=== PATIENT | female | born 1945 | race Caucasian/White ===

== ENCOUNTER 2025-02-11 09:43 | Outpatient (REF) | payer MEDICARE, SELFPAY ==
--- NOTE | ~2025-02-11 | MM_ITS ---
EXAMINATION: DXA BONE DENSITY AXIAL HISTORY: Z78.0 MENOPAUSAL STATE TECHNIQUE: Digital Signal Dual energy absorptiometry (DEXA) of the lumbar spine, total left hip, and femoral neck was performed. COMPARISON: Comparison is made with the prior examination dated 12/08/2016. FINDINGS: The bone mineral density of the lumbar spine is 0.847, corresponding to a T-score of -2.9, and a Z-score of -1.7. This is indicative of osteoporosis. This represents a BMD change of -11.1% compared to the prior exam. This is statistically significant. The bone mineral density of the left total hip is 0.843, corresponding to a T-score of -1.3, and a Z-score of 0.3. This is indicative of osteopenia. This represents a BMD change of -6.0% compared to the prior exam. This is statistically significant. The bone mineral density of the left femoral neck is 0.725, corresponding to a T-score of -2.3, and a Z-score of -0.4. This is indicative of osteopenia. This represents a BMD change of -11.2% compared to the prior exam. FRACTURE RISK: The FRAX index suggests a ten year probability of major osteoporotic fracture of 24.8%, and of hip fracture 9.2%. MM/XR DEXA axial skeleton IMPRESSION: Based on bone mineral density, and according to World Health Organization (WHO) criteria, the diagnosis is consistent with osteoporosis. All bone density values are in grams per centimeter squared (g/cm2). Statistically, 68% of repeat scans fall within 1 SD (+/- 0.010 g/cm2 for AP spine L1-L4) and 1 SD (+/- 0.012 g/cm2 for femur total) FRAX is a trademark of the [employer] [employer], a World Health Organization (WHO) Collaborating Center. Electronically signed by: Santana Barreto MD 02/12/2025 08:53 AM EDT
--- OUTSIDE RECORDS SUMMARY | 2025-02-11 10:20 | XMS_ITS | Data Portability ---
Author Organization [facility], [facility]LY [facility] Address [address] [place] [address] Care Team Providers Care Poultry Sexer Name Role Phone LITA MIR Primary Care Provider [phone] YOLIS PELAEZ Em Physician ANIBAL HUMPHREYS Barrel Polisher Inside KAYLYNN MUÑOZ Acid Plant Helper Assessment Encounter Date Assessment Date Assessment LastModified by Organization Details LastModified Time 10/14/2024 10/14/2024 Plan: 1-2 x/week tapering as lashae to 1 every 2-4 weeks for 8 weeks from 09/02/24 A: Appropriate with HEP progressions. Likely needs to attend closely to sitting and sleeping position to make satisfactory progress on goals. Skilled PT is reasonable and indicated to address exam findings and maximize safe pain-free level of function. Next visit: review sleeping position, step-ups/step-do wn positioning, review repeated spinal flexion motions, OMT reassessment Goals: STG/LTG Time to Achieve Goal Progress per IE Comment STG 4 weeks No increased pain with HEP new STG 4 weeks Radiating pain in L LE <2/10 on average new LTG 8 weeks Patient-Specific Functional Scale improved from 6/10 to 0/10 for walking up stairs new LTG 8 weeks Patient-Specific Functional Scale improved from 6/10 to <2/10 for sleeping new LTG 8 weeks Patient-Specific Functional Scale improved from 6/10 to <2/10 for walking new LTG 8 weeks Resolved compensated trendelenburg gait over >150 ft in clinic. new LTG 8 weeks MMT at least 4+/5 throughout B hip abd/ext to support pain control with ADLs new LTG 8 weeks Radiating pain in L LE resolved new LTG 8 weeks Independent in comprehensive HEP. new Treatments may include (as appropriate/as indicated): Therapeutic exercise(14309)/ Neuromuscular Reeducation (90295)/Manual Therapy (47751)/Therapeu tic Activities (51460)/Self-car e management(64259 )/Attended Electrical Stimulation (64696)/PRN modalities/dry needling/Gait Training (53898)/canalith repositioning(95 992) Not available 10/14/2024 12:02:33 11/05/2024 11/05/2024 1 every 2-4 weeks for an additional 8 weeks from 11/05/24 A: Pt making excellent progress on goals. She would benefit from skilled HEP review and modification to ensure full relief of pain and compensated trendelenburg gait. Skilled PT is reasonable and indicated to address exam findings and maximize safe pain-free level of function. Next visit: OMT reassessment PRN. Review HEP. Goals: STG/LTG Time to Achieve Goal Progress per IE Comment STG 4 weeks No increased pain with HEP goal met STG 4 weeks Radiating pain in L LE <2/10 on average goal met LTG 8 weeks Patient-Specific Functional Scale improved from 6/10 to 0/10 for walking up stairs 66% 2/10 as of 11/05/24 - no pain, but still slower/muscularl y tiring LTG 8 weeks Patient-Specific Functional Scale improved from 6/10 to <2/10 for sleeping goal met 0-1/10 as of 11/05/24 LTG 8 weeks Patient-Specific Functional Scale improved from 6/10 to <2/10 for walking goal met 1/10 as of 11/05/24 - I still seem to waddle. No fatigue or pain. LTG 8 weeks Resolved compensated trendelenburg gait over >150 ft in clinic. not met LTG 8 weeks MMT at least 4+/5 throughout B hip abd/ext to support pain control with ADLs 50% LTG 8 weeks Radiating pain in L LE resolved goal met LTG 8 weeks Independent in comprehensive HEP. new still finalizing HEP as of 11/05/24 Treatments may include (as appropriate/as indicated): Therapeutic exercise(45623)/ Neuromuscular Reeducation (20458)/Manual Therapy (30990)/Therapeu tic Activities (60484)/Self-car e management(99691 )/Attended Electrical Stimulation (54233)/PRN modalities/dry needling/Gait Training (61645)/canalith repositioning(95 992) [email or web address] Not available 11/05/2024 12:02:17 11/22/2024 11/22/2024 1 every 2-4 weeks for an additional 8 weeks from 11/05/24 A: Pt continues to have functional hip abductor weakness. Consequent trendelenburg in single legged activities contributing to residual sx. Skilled PT is reasonable and indicated to address exam findings and maximize safe pain-free level of function. Next visit in 2-4 weeks: OMT reassessment PRN. Review HEP and confirm progressing resistance exercise. Review goals. Pt to return in 2 weeks if not making improvement. Goals: STG/LTG Time to Achieve Goal Progress per IE Comment STG 4 weeks No increased pain with HEP goal met STG 4 weeks Radiating pain in L LE <2/10 on average goal met LTG 8 weeks Patient-Specific Functional Scale improved from 6/10 to 0/10 for walking up stairs 66% 2/10 as of 11/05/24 - no pain, but still slower/muscularl y tiring LTG 8 weeks Patient-Specific Functional Scale improved from 6/10 to <2/10 for sleeping goal met 0-1/10 as of 11/05/24 LTG 8 weeks Patient-Specific Functional Scale improved from 6/10 to <2/10 for walking goal met 1/10 as of 11/05/24 - I still seem to waddle. No fatigue or pain. LTG 8 weeks Resolved compensated trendelenburg gait over >150 ft in clinic. not met LTG 8 weeks MMT at least 4+/5 throughout B hip abd/ext to support pain control with ADLs 50% LTG 8 weeks Radiating pain in L LE resolved goal met LTG 8 weeks Independent in comprehensive HEP. new still finalizing HEP as of 11/05/24 Treatments may include (as appropriate/as indicated): Therapeutic exercise(86026)/ Neuromuscular Reeducation (53722)/Manual Therapy (97417)/Therapeu tic Activities (22364)/Self-car e management(90764 )/Attended Electrical Stimulation (68163)/PRN modalities/dry needling/Gait Training (49527)/canalith repositioning(95 992) [email or web address] Not available 11/22/2024 14:30:33 01/14/2025 01/14/2025 We completed your Medicare Wellness exam today. This was an opportunity to assess your overall well being including your ability to care for yourself, your mobility, memory, mental health, as well as your safety. With advancing age, it is important to assign someone in your life as your Health Care Proxy (HCP). This person should know what is important to you and what your wishes are for medical procedures if you cannot communicate your wishes yourself (severe illness, unconsciousness) . We discussed having a completed Health Care Proxy form today. In addition, today we started a conversation about your End of Life wishes. These conversations will continue over the years. Please consider reading the book, Being Mortal by Tobias Walker to help frame future conversations. We discussed the purpose of a MOLST form (Medical Orders for Life Sustaining Treatment) and completed this form if appropriate per your wishes. Vision and Hearing are senses that are critically important as we age. When impaired, they can contribute to memory loss, falls, and make it harder to drive, talk to family and friends, and engage in the world. Please get your vision checked yearly and your hearing checked when you start to notice hearing loss. We discussed approaches to lowering your risk of heart disease and stroke . Your blood pressure is at goal. Your cholesterol is at goal. We discussed cancer screening you may need as well as vaccines to prevent infections. Colon Cancer : Your risk of colon cancer is average. Due for colorectal screenin. If you are not planning to have a colonoscopy please screen with stool cards yearly. Breast Cancer : Breast Cancer Screening (mammography). Next mammogram due: 2025. Cervical Cancer Screening (pap test). Next pap due: not needed. Influenza Vaccine : Flu shot yearly. Tetanus Vaccine : Every 10 years. Due: 2023. The following vaccines are available from your pharmacy: Pneumonia Vaccine : PCV20: once after age 65. Shingles Vaccine : 2 shots after age 50. Covid Vaccine : Make sure you have received the most up to date covid vaccine. Your personal health goal for the year is: Not available 01/14/2025 13:26:40 Plan of Treatment Reminders Order Date Submit Date Provider Last Modified By Organization Details Last Modified Time Details Appointments LAB Follow-Up 2024 08:50A M [facility] Lab Not available Not available Not available Follow Up, 2024 09:50A M Yolis Pelaez MD Not available Not available Not available LAB Follow-Up 2024 08:30A M [facility] Lab Not available Not available Not available Medical Managemen t 30 2024 10:30A M SHALOM PITTSINGE R, VENETIAN BLIND CLEANER AND REPAIRER Not available Not available Not available Lab magnesium , blood [address] [facility], [address] [place] [address], [id number], 01/14/2025 10:51:18 vitamin D, 25-hydrox y, total, serum [address] [facility], [address] [place] [address], [address], 01/14/2025 10:51:18 PTH (parathyr oid hormone), intact, serum or plasma [address] [facility], [address] [place] [address], [address], 01/14/2025 10:51:18 phosphoru s, serum or plasma [address] [facility], [address] [place] [address], [address], 01/14/2025 10:51:18 influenza virus A + B + SARS-CoV- 2 (COVID19) Ag panel, rapid IA, upper respirato ry specimen 2024 [address] [facility], [address] [place] [address], [address], 12/25/2024 09:07:[address] referral - trouble hearing 2024 025 [facility], [address] [place] [address], [address], 01/16/2025 16:27:21 Procedures None recorded. Surgeries None recorded. Imaging bone density - Last imaging in chart was 12/08/2016 at [place] 2024 025 [facility], [address] [place] [address] [place], [address], 01/15/2025 12:04:24 Medication Orders clotrimaz ole 1 % topical cream 2024 025 [facility], [facility], JESÚS Pérez, [address], 01/14/2025 10:55:40 Patient TargetsNo targets recorded. 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 Referral for Wilmer ateral hearing loss trouble hearing Referring Physician: Lita Mir, Family Medicine, Encounter Date: 01/14/2025 Results Created Date Observation Date Name Description Value Unit Range Abnormal Flag Note LastModifiedBy Organization Detail LastModifiedTime 12/25/1912/24/2024 POC FLU/S ARS flu A POC NEGATI VE Not Available [facility] [address] [place], [address], 12/25/2024 09:07:14 12/25/1912/24/2024 POC FLU/S ARS flu B POC NEGATI VE Not Available [facility] [address] [place], [address], 12/25/2024 09:07:14 12/25/192025 POC FLU/S ARS sars POC NEGATI VE Not Available [facility] [address] [place], [address], 12/25/2024 09:07:14 01/08/20 25 01/07/2025 BASIC METAB OLIC PANEL glucose 82 mg/dL 70-100 Not Available [facility] [address] [place], [address], 01/07/2025 11:42:27 01/08/20 25 01/07/2025 BASIC METAB OLIC PANEL BUN 14 mg/dL 7-18 Not Available [address], [address], 01/07/2025 11:42:27 01/08/20 25 01/07/2025 BASIC METAB OLIC PANEL creatinine 0.8 mg/dL 0.8-1. 3 Not Available [facility] [address] [place], [address], 01/07/2025 11:42:27 01/08/20 25 01/07/2025 BASIC METAB OLIC PANEL B/C 17.5 ratio Not Available [address], [address], 01/07/2025 11:42:27 01/08/20 25 01/07/2025 BASIC METAB OLIC PANEL GFR >=60ML /MIN mL/mi n normal >=60m L/min - Vandana l or midly reduc ed <60mL /min- Decre ased kidne y funct ion <15mL /min - Kidne y failu re [facility] calcu lates estim ated Glome rular Filtr ation Rate (eGFR ) using the Chron ic Kidne y Disea se Epide miolo gy Colla borat ion (CKD- EPI) Equat ion (Pal alcala et. al 2020) as recom nithin d by the Natio nal Kidne y Found ation . eGFR is based on age, serum creat inine , and sex. CKD-E PI does not calcu late eGFR by race, does not apply to child singh (age <18 years ), and shoul d not be used in pregn brittany. Not Available [address], [address], 01/07/2025 11:42:27 01/08/20 25 01/07/2025 BASIC METAB OLIC PANEL sodium 138 mmol/ L 136-14 5 Not Available [address], [address], 01/07/2025 11:42:27 01/08/20 25 01/07/2025 BASIC METAB OLIC PANEL potassium 4.5 mmol/ L 3.5-5. 1 Not Available [address], [address], 01/07/2025 11:42:27 01/08/20 25 01/07/2025 BASIC METAB OLIC PANEL chloride 98 mmol/ L 96-107 Not Available [address], [address], 01/07/2025 11:42:27 01/08/20 25 01/07/2025 BASIC METAB OLIC PANEL anion gap 9.1 5.0-15 .0 Not Available [address], [address], 01/07/2025 11:42:27 01/08/20 25 01/07/2025 BASIC METAB OLIC PANEL CO2 31 mmol/ L 21-32 Not Available [address], [address], 01/07/2025 11:42:27 01/08/20 25 01/07/2025 BASIC METAB OLIC PANEL calcium 9.2 mg/dL 8.5-10 .3 Not Available [address], [address], 01/07/2025 11:42:27 01/08/20 25 01/07/2025 LIPID PANEL cholesterol 193 mg/dL <200 mg/dl Yahaira able 200-2 39 mg/dl Borde rline High >240 mg/dl High Not Available [address], [address], 01/07/2025 11:42:28 01/08/2001/07/2025 LIPID PANEL triglyceride s 103 mg/dL <150 mg/dL Vandana l 150-1 99 mg/dL Borde rline High 200-4 99 mg/dL High >500 mg/dL Very High Not Available [address], [address], 01/07/2025 11:42:28 01/08/20 25 01/07/2025 LIPID PANEL direct HDL 78 mg/dL <40 mg/dl - Major Risk for CHD >60 mg/dl - Negat cal Risk for CHD Not Available [address], [address], 01/07/2025 11:42:28 01/08/20 25 01/07/2025 LDL - CALCU LATED LDL - calculated 94 RISK CATEG ORY LDL GOAL _ CHD or CHD Risk Equiv alent s <100 mg/dl (10-y ear risk >20%) 2+ Risk Facto rs <130 mg/dl (10-y ear risk <= 20%) 0-1 Risk Facto r? <160 mg/dl ? Almos t all peopl e with 0-1 risk facto r have a 10 year risk <10%, thus 10 year risk asses ment in peopl e with 0-1 risk facto r is not lizz sheikh. Not Available [address], [address], 01/07/2025 11:42:28 01/08/2001/07/2025 TSH TSH 0.14 uIU/m L 0.50-6 .00 low The Ameri can Colle ge of Endoc rinol ogy and Ameri can Thyro id Assoc iatio n recom mend goal TSH value s betwe en 0.4-4 .0 mIU/m L. Not Available [address], [address], 01/07/2025 14:13:45 02/04/2002/03/2025 MAMMO , scree surekha, tomos ynthe sis, bilat eral No observ ation record ed. [email or web address] [facility] [address] , [place], [address], 02/04/2025 08:11:48 Result Notes None recorded. 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 Free t4 has suggested thyroid hormone is well dosed in the past. I would not recommend following tsh. 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 Procedures Surgical History Date Name Laterality Status Provider Name and Address Organization Details Recorded Time 01/15/20 Medicare Wellness Visit completed CHRISTOPHER Elizabeth [facility] 01/10/2025 16:33:10 11/23/19 36510: Therapeutic Exercise completed ARTURO CHARLES, PT [address] [place], [address], [facility] 11/22/2024 14:27:49 11/23/19 09293: Neuromuscular Re-Education completed ARTURO CHARLES PT [address] [place], [address], [facility] 11/22/2024 14:27:00 11/23/19 11481: Therapeutic Activities - Direct 1:1 completed ARTURO CHARLES, PT [address] [place], [address], [facility] 11/22/2024 14:26:51 11/23/19 25 Treatment and Advice completed ARTURO CHARLES, PT [address] [place], [address], [facility] 11/22/2024 14:07:43 11/05/19 25 06559: Therapeutic Exercise completed ARTURO CHARLES, PT [address] [place], [address], [facility] 11/05/2024 12:01:22 11/05/19 25 Treatment and Advice completed ARTURO CHARLES, PT [address] [place], [address], [facility] 11/05/2024 10:59:11 10/14/19 05842: Therapeutic Exercise completed ARTURO CHARLES, PT [address] [place], [address], [facility] 10/14/2024 12:00:38 10/14/19 25 28914: Therapeutic Activities - Direct 1:1 completed ARTURO CHARLES, PT [address] [place], [address], [facility] 10/14/2024 12:00:43 10/14/19 25 Treatment and Advice completed ARTURO CHARLES, PT [address] [facility] [place], [address], [facility] 10/14/2024 10:11:54 09/30/19 25 79493: Therapeutic Exercise completed ARTURO CHARLES, PT [address] [place], [address], [facility] 09/30/2024 12:09:06 09/30/19 25 56389: Therapeutic Activities - Direct 1:1 completed ARTURO CHARLES, PT [address] [place], [address], [facility] 09/30/2024 12:07:38 09/30/19 25 Treatment and Advice completed ARTURO CHARLES, PT [address] [place], [address], [facility] 09/30/2024 11:34:38 09/23/19 25 98489: Therapeutic Exercise completed ARTURO CHARLES, PT [address] [place], [address], [facility] 09/23/2024 12:15:14 09/23/19 25 07723: Therapeutic Activities - Direct 1:1 completed ARTURO CHARLES, PT [address] [place], [address], [facility] 09/23/2024 12:16:48 09/23/19 25 Treatment and Advice completed ARTURO CHARLES, PT [address] [place], [address], [facility] 09/23/2024 12:01:23 09/16/20 24 24045: Therapeutic Exercise completed ARTURO CHARLES, PT [address] [place], [address], [facility] 09/16/2024 10:54:08 09/16/20 24 05087: Therapeutic Activities - Direct 1:1 completed ARTURO CHARLES, PT [address] [place], [address], [facility] 09/16/2024 10:33:31 09/16/20 24 Treatment and Advice completed ARTURO CHARLES, PT [address] [place], [address], [facility] 09/16/2024 09:30:41 09/02/20 24 Physical Activity Counselling completed ARTURO CHARLES, PT [address] [facility] [place], [address], [facility] 09/02/2024 12:08:28 09/02/20 24 [address]: PT January, Moderate Complexity completed ARTURO CHARLES, PT [address] [facility] [place], [address], [facility] 09/02/2024 12:08:23 09/02/20 24 Treatment and Advice completed ARTURO CHARLES, PT [address] [facility] [place], [address], [facility] 09/02/2024 14:03:50 08/17/20 17 71071: Therapeutic Exercise completed Marlen Fleming[address], [address], [facility] 05/04/2017 15:08:13 05/04/20 17 85556: Ultrasound (1:1) completed Marlen Fleming[address], [address], [facility] 05/04/2017 15:08:13 05/01/20 17 98263: Therapeutic Exercise completed Marlen Brito[address], [address], [facility] 05/01/2017 15:34:48 05/01/20 17 03341: Ultrasound (1:1) completed Marlen Brito[address], [address], [facility] 05/01/2017 19:20:28 04/27/20 17 21758: Therapeutic Exercise completed Marlen Daryl[address], [address], [facility] 04/27/2017 18:43:47 04/24/20 17 51698: Therapeutic Exercise completed Marlen Daryl[address], [address], [facility] 04/24/2017 15:33:31 04/24/20 17 30377: Manual Therapy completed Marlen Daryl[address], [address], [facility] 04/24/2017 15:33:36 04/20/20 17 Physical Activity Counselling completed Marlen Daryl[address], [address], [facility] 04/20/2017 15:14:25 04/20/20 17 41780: PT Eval Low Complexity completed [facility] [address], [address], [facility] 04/20/2017 15:14:47 03/13/20 17 Medicare Wellness Visit completed Audrey Lam MA [facility] 03/13/2017 13:50:31 03/10/20 16 Medicare Wellness Visit completed Shruti Manzo MA [facility] 03/10/2016 09:19:33 Imaging Results None recorded. Procedure Notes None recorded. Medical Equipment None Reported. Allergies Allergen ID Allergen Name Allergen Category Reaction Reaction Severity Criticality Documentation Date Start Date Code Code System Note Provider Name and Address Organization Details Recorded Time 938634 Penicilli n Not available rash Not available Not available 03/17/2015 72467 RxNorm turne d blue then back. .as a teen Xiao CHRISTOPHER Rogel [facility] 7 09:46:37 360862 Flagyl medicatio n rash Not available Not available 01/09/201922997 6 RxNorm Giv en by IV hands , face CHRISTOPHER Gandhi ed [facility] 9 16:28:09 Medications Name Sig Start Date Stop Date Status Note LastModified by Organization Details LastModified Time losartan 50 mg tablet TAKE 1 TABLET BY MOUTH DAILY 06/27 completed Not Available Not Available Not Available hydrocort isone 5 mg tablet TAKE 2 TABLETS IN THE MORNING ON WAKING AND 1 TABLET IN THE EARLY AFTERNOO N 2 HOURS AFTER LUNCH. TAKE STRESS DOSES 6 TABLETS IN THE MORNING AND 3 TABLETS IN THE AFTERNOO N FOR UP TO 3 DAYS IF FLU LIKE ILLNESS OR MEDICAL PROCEDUR E THEN RETURN TO TYPICAL DOSING. active Not Available Not Available No t Available nystatin 100,000 unit/mL oral suspensio n Take 5 mL 4 times a day by oral route as directed for 7 days. 02/06 completed Not Available Not Available Not Available clonidine HCl 0.1 mg tablet 1 tabs 0.1mg by mouth once now, may repeat 1 tab 0.1mg by mouth every 1 to 2h for up to 5h as needed, monitor bp in clinic 09/14 completed Not Available Not Available Not Available azithromy blanca 250 mg tablet TAKE 2 TABLETS (500 MG) BY ORAL ROUTE ONCE DAILY FOR 1 DAY THEN 1 TABLET (250 MG) BY ORAL ROUTE ONCE DAILY FOR 4 DAYS 04/24 completed Not Available Not Available Not Available cefpodoxi me 100 mg tablet Take 1 tablet twice a day by oral route for 10 days. 08/24 completed Not Available Not Available Not Available benzonata te 200 mg capsule Take 1 capsule 3 times a day by oral route as needed for 14 days. 11/26 completed Not Available Not Available Not Available metoprolo l succinate ER 50 mg tablet,ex tended release 24 hr TAKE 1 TABLET DAILY DIRECTED active Not Available Not Available No t Available Claritin 10 mg tablet Take 1 tablet every day by oral route for 30 days. 02/24 completed Not Available Not Available Not Available ondansetr on HCl 4 mg tablet 02/06 completed 01/09/19= has at home, hasn't used Not Available Not Available Not Available Alcohol Pads use to clean hydrocor tisone vial and skin prior to injectio n 2022 active Not Available Not Available Not Avai lable prednison e 5 mg tablet active Not Available Not Available Not Available moxifloxa blanca 400 mg tablet TAKE 1 TABLET BY MOUTH EVERY 24 HOURS FOR 10 DAYS 07/30 completed Not Available Not Available Not Available clindamyc in HCl 150 mg capsule 07/23 completed Not Available Not Available Not Available amlodipin e 2.5 mg tablet TAKE 1 TABLET DAILY active Not Available Not Available No t Available amlodipin e 5 mg tablet TAKE 1 TABLET BY MOUTH EVERY DAY 06/27 completed Not Available Not Available Not Available peg-elect rolyte solution 420 gram oral solution 05/30 completed Not Available Not Available Not Available doxycycli ne monohydra te 100 mg tablet Take 1 tablet twice a day by oral route for 7 days. 11/17 completed Not Available Not Available Not Available guaifenes in 100 mg/5 mL oral liquid Take 10 mL every 4 hours by oral route as needed. 11/17 completed Not Available Not Available Not Available lorazepam 0.5 mg tablet 1/2-1 tab po daily as needed for severe anxiety with flying 02/24 completed Not Available Not Available Not Available prednison e 1 mg tablet 3 tabs 3mg by mouth once daily; take 12 mg by mouth once daily for up to 3d for stressfu l illness 08/24 completed Not Available Not Available Not Available amlodipin e 10 mg tablet Take 1 tablet every day by oral route. active Not Available Not Available No t Available benzonata te 100 mg capsule Take 1 capsule 3 times a day by oral route as needed for 7 days. 03/23 completed Not Available Not Available Not Available oseltamiv ir 75 mg capsule Take 1 capsule twice a day by oral route for 5 days. 03/15 completed influenz a due to Influenz a A virus Not Available Not Available Not Available Synthroid 88 mcg tablet Take 1 tablet every day by oral route. 05/05 completed Not Available Not Available Not Available metronida zole 0.75 % topical cream 12/06 completed as needed 11/10/20 =no longer uses prn Not Available Not Available Not Available losartan 25 mg tablet TAKE 1 TABLET ONCE DAILY 06/27 completed Not Available Not Available Not Available Synthroid 75 mcg tablet TAKE 1 TABLET ONCE DAILY 6 DAYS A WEEK AND NONE ONCE WEEKLY active Not Available Not Available No t Available BD Safety-Lo k Detachabl e Needle 3 mL 22 gauge x 1 1/2 syringe USE DIRECTED active Not Available Not Available No t Available omeprazol e 20 mg capsule,d elayed release Take 1 capsule every day by oral route for 14 days. 10/26 completed Not Available Not Available Not Available irbesarta n 75 mg tablet Take 1 tablet every day by oral route for 90 days. active Not Available Not Available No t Available codeine 10 mg-guaife nesin 100 mg/5 mL oral liquid TAKE 10ML BY MOUTH AT BEDTIME NEEDED FOR COUGH, MAY REPEAT DOSE ONCE IF NEEDED IN >4 HOURS DURING THE NIGHT 09/30 completed Not Available Not Available Not Available furosemid e 20 mg tablet TAKE 1 TABLET TWICE A DAY active Not Available Not Available No t Available metoprolo l succinate ER 25 mg tablet,ex tended release 24 hr FOR DIRECTIO NS ON HOW TO TAKE THIS MEDICINE , READ THE ENCLOSED MEDICATI ON INFORMAT ION FORM 11/26 completed ONLY TAKING 50mg TABLET-*l b Not Available Not Available Not Available hydrocort isone 10 mg tablet 3/4 tab 7.5mg to 1 tab 10mg by mouth am and 1/4 tab 2.5mg to 1/2 tab 5mg by mouth afternoo n 08/[address] Pelaez. ...11/10=tota l 10 mg per day. Not Available Not Available Not Available azelastin e 137 mcg (0.1 %) nasal spray USE 2 SPRAYS IN EACH NOSTRIL EVERY DAY NEEDED 06/27 completed Not Available Not Available Not Available ondansetr on 4 mg disintegr ating tablet DISSOLVE 1 TABLET ON THE TONGUE THREE TIMES DAILY NEEDED FOR NAUSEA OR VOMITING 07/30 completed never used Not Available Not Available Not Available losartan 100 mg tablet TAKE 1 TABLET DAILY active Not Available Not Available No t Available fluticaso ne propionat e 50 mcg/actua tion nasal spray,jose pension [place] 1 spray every day by intranas al route as needed. 11/06 completed PRN Not Available Not Available Not Available clotrimaz ole 1 % topical cream APPLYING NEEDED FOR RECURREN T RASH ON BREAST BILATERA LLY active Not Available Not Available No t Available doxycycli ne hyclate 100 mg tablet Take 1 tablet twice a day by oral route for 5 days. active Not Available Not Available No t Available prednisol one 5 mg tablet Take 1 tablet every day by oral route. active Not Available Not Available No t Available Tessalon Perle 100 mg capsule Take 2 capsules 3 times a day by oral route as needed. 11/17 completed Not Available Not Available Not Available Pneumovax -23 25 mcg/0.5 mL injection syringe ADM 0.5ML IM UTD 11/06 completed Not Available Not Available Not Available rosuvasta tin 10 mg tablet TAKE 1 TABLET DAILY active Not Available Not Available No t Available BD Regular Bevel [place] 19 gauge x 1 USE DIRECTED active Not Available Not Available No t Available Os-Kye 500 + D3 1 po BID 2018 active Not Available Not Available Not Avai lable ProAir HFA 90 mcg/actua tion aerosol inhaler Inhale 2 puffs every 4 hours by inhalati on route as needed. 11/26 completed 11/26/18 =patient never picked up//didn 't know it was called in for her coughl b Not Available Not Available Not Available Solu-Augusto ef Act-O-Via l (PF) 100 mg/2 mL solution for injection 100mg intramus cular or subcut if severe injury, loss of consciou sness, or inabilit y to tolerate oral medicine due to severe nausea/v omiting 01/10 completed Not Available Not Available Not Available Probiotic 1 po daily (was taken w/ABX) 02/06 completed Not Available Not Available Not Available Centrum 18 mg-400 mcg tablet 1 po daily. active Not Available Not Available No t Available Readi-Cat 2 2 % (w/v) oral suspensio n DRINK FIRST BOTTLE 6 HOURS BEFORE EXAM AND SECOND BOTTLE 90 MINUTES BEFORE EXAM 07/30 completed Not Available Not Available Not Available Fluad 65yr up(PF)45 mcg(15 mcgx3)/0. 5 mL intramusc ular syringe ADM 0.5ML IM UTD 11/06 completed Not Available Not Available Not Available Fluzone High-Dose Quad (PF) 240 mcg/0.7 mL IM syringe ADM 0.7ML IM UTD 11/10 completed Not Available Not Available Not Available BinaxNOW COVID-19 Ag Self Test kit TEST DIRECTED TODAY 07/30 completed Not Available Not Available Not Available Vitals Date Recorded Body height Heart rate Oxygen saturation Oxygen saturation in Arterial blood by Pulse oximetry Body temperature Systolic And Diastolic Provider Name and Address Organization Details Last Updated DateTime 5 162.56 cm 59 /min 99 % 99 % 98 [degF] 124/70 mm[Hg] Chhaya Rodriguez [facility] 5 16:22:14 Date Recorded Body height Body mass index (BMI) Body weight Heart rate Oxygen saturation Oxygen saturation in Arterial blood by Pulse oximetry Systolic And Diastolic Provider Name and Address Organization Details Last Updated DateTime 5 162.56 cm 31.8 kg/m2 92676.9 9 g 59 /min 99 % 99 % 128/64 mm[Hg] Chhaya Rodriguez [facility] 5 10:19:32 Social History Question Answer Notes LastModified by Organizat ion Details LastModified Time Tobacco Smoking Status [facility] 10:58:05 What Is Your Level Of Caffeine Consumption? Moderate Coffee - 1 Cup/day Or Less [email or web address] Information not available 05/14/2021 How Much Tobacco Do You Chew? None Information not available 03/17/2015 What Type Of Diet Are You Following? REGULAR Information not available 01/14/2025 Which Illicit Or Recreational Drugs Have You Used? Never Information not available 03/17/2015 Education Post Graduate Masters [email or web address] Information not available 10/12/2022 What Is The Highest Grade Or Level Of School You Have Completed Or The Highest Degree You Have Received? [id number] Information not available 01/11/2024 How Many Days In The Past Year Have You Had A Heavy Drinking Consumption (4+ Female, 5+ Male)? 0 11/10/20= [email or web address] Information not available 10/12/2022 Are There Any Guns Present In Your Home? No Information not available 01/11/2024 Live Alone Or With Others? Alone [email or web address] Information not available 10/12/2022 Patient Has Health Care Proxy Signed And In Chart Yes [email or web address] Information not available 01/19/2024 CCM Consent Discussion 11/15/2022 [email or web address] Information not available 11/15/2022 Marital Status [email or web address] Informatio n not available 10/12/2022 Mosquito Repellent Used Routinely Yes [email or web address] Information not available 10/12/2022 What Was The Date Of Your Most Recent Tobacco Screening? 12/24/2024 Information not available 12/24/2024 How Many Children Do You Have? 3 Information not available 03/17/2015 What Is Your Relationship Status? Passed In February 2022 Information not available 12/27/2022 Do You Use Your Seat Belt Or Car Seat Routinely? Yes Information not available 12/24/2021 Seat Belts Used Routinely Yes [email or web address] Information not available 10/12/2022 Are You Sexually Active? No Information not available 03/17/2015 Smoke Alarm In Home Yes [email or web address] Information not available 10/12/2022 Do You Have Smoke And Carbon Monoxide Detectors In Your Home? Yes Information not available 12/24/2021 How Much Tobacco Do You Smoke? No Information not available 05/30/2019 General Stress Level High [email or web address] Information not available 10/12/2022 Do You Use Sunscreen Routinely? Yes Information not available 11/10/2020 How Many Years Have You Smoked Tobacco? 0 Information not available 05/30/2019 Sex: Female Functional Status Question Answer Note LastModified by Organization Details LastModified Time Do you use any illicit or recreational drugs? No Information not available 12/24/2021 Do you or have you ever used any other forms of tobacco or nicotine? No Information not available 06/27/2023 What is your level of alcohol consumption? None None. Information not available 11/10/2020 Do you or have you ever used smokeless tobacco? Never used smokeless tobacco Information not available 05/30/2019 Are you currently employed? 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 Never used electronic cigarettes Information not available 05/30/2019 What is your exercise level? Occasional as much as I can getting back outside as it gets warmer Information not available 12/27/2022 Mental Status None recorded. Family History Relationship Description Onset Age of this Age Resolved Age Notes LastModified by Organization Details LastModified Time Father Myocardial infarction [email or web address] Not available 11/17 08:42:37 Father Hypertensive disorder [email or web address] Not available 2015 08:42:37 Mother Hypertensive disorder [email or web address] Not available 2015 08:42:37 Son Asthma Not available 01/14/2025 10:31:22 Notes:no pituitary adenomas, parathyroid problems no breast cancer, no colon cancer in the family. Medical History Condition Response NEUROLOGIC Y EYE CARDIOVASCULAR Y ENDOCRINE Y INFECTIOUS DISEASE Y Hypertension Y Gynecological History Statement/Question Response HPV N History of Abnormal Pap N N Obstetrics History GPAL:G 0 P 0 0 0 0 Immunizations Vaccine Type Date Status Note Provider Nam e and Address Organization Details Recorded Time Influenza, high-dose, trivalent, PF 7 completed Not Available [facility] 10/05/2019 02:26:08 Influenza, high-dose, trivalent, PF 5 completed Marissa Pierre MA [facility] 10/12/2022 08:03:15 influenza, unspecified formulation 3 [facility] 08:03:15 tetanus toxoid, unspecified formulation 4 completed [facility]/12/2022 08:03:15 pneumococcal polysaccharide PPV23 0 completed [facility] 08:03:15 influenza, unspecified formulation 6 completed [facility]/12/2022 08:03:15 influenza, unspecified formulation 8 completed [facility]/12/2022 08:03:15 Pneumococcal conjugate PCV 13 4 completed Marissa Pierre [facility]12[facility] 08:03:15 Influenza, high-dose, trivalent, PF 0 completed [facility]/12/2022 08:03:15 Influenza, high-dose, quadrivalent, PF 2 completed SHU Roe [address] [place] [address], [id number], [facility] 06/21/2022 16:26:53 COVID-19, mRNA, LNP-S, PF, 100 mcg/0.5mL dose or 50 mcg/0.25mL dose 1 completed [facility]/12/2022 08:03:15 COVID-19, mRNA, LNP-S, PF, 100 mcg/0.5mL dose or 50 mcg/0.25mL dose 1 completed [facility]/12/2022 08:03:15 Influenza, split virus, quadrivalent, preservative 1 completed [facility] 10/12/2022 08:03:15 COVID-19, mRNA, LNP-S, PF, 100 mcg/0.5mL dose or 50 mcg/0.25mL dose 1 completed Marissa Pierre MA [facility] 10/12/2022 08:03:15 COVID-19, mRNA, LNP-S, PF, 100 mcg/0.5mL dose or 50 mcg/0.25mL dose 2 completed [facility]/12/2022 08:03:15 Influenza, high-dose, trivalent, PF 8 completed Marissa Pierre MA [facility] 10/12/2022 08:03:15 SARS-COV-2 (COVID-19) vaccine, UNSPECIFIED 2 completed Nani Car LPN [facility] 10/17/2022 10:02:44 COVID-19, mRNA, LNP-S, PF, 50 mcg/0.5 mL 4 completed CHRISTOPHER Elziabeth [facility] 07/12/2024 10:13:50 influenza, unspecified formulation 4 completed CHRISTOPHER Elizabeth [facility] 07/12/2024 10:14:06 Past Encounters Encounter ID Performer Location Encounter Start Date Encounter Closed Date Diagnosis/Indication Diagnosis SNOMED-CT Code Diagnosis ICD10 Code Diagnosis Note [id number] Brittany Saini MD , [facility], [address] [place] [address] 03/17/2015 13:15:46 03/17/2015 14:32:42 Screening for malignant neoplasm of colon [id number] Intracrani al meningioma [id number] Hyponatremia 08797840 Hi story of hyponatrem ia in setting of prior mena's and brain lesions as above Last Na 134 - Ms Garcia has been checking monthly Ms Garcia and I agree to trend her electrolyt es again today she has follow-up with endocrine in April and wll be in touch with me sooner if he is not feeling well Hypothyroidism 02072778 TSH a bit low in September - repeat today [id number] Brittany Saini MD , [facility], [address] [facility] [place] [address] 03/21/2015 10:51:01 03/21/2015 12:45:43 Sinusitis [id number] This may be viral and/or allergic, but Ms Garcia is at higher risk for bacterial infection given hx pituitary adenoma s/p trasphenoi john resection, mena's , hyponatrem ia and recent use of steroids sx have been present >5 days with interval worsening We agree to try an anti-hista mine for 24-48 hours (and 1-2 weeks thereafter if she experience s relief) I will give her an RX for doxy 100 mg BID x 5 days (she is PCN allergic) to use for bacterial sinusitis if she continues worsen or does not improve in 24-48 hours with self-care Cannot use decongesta nt bc of HTN Hypertensive disorder 54750910 BP not at goal - now off Lasix given hyponatrem ia Possibly elevated in setting of prednisone , although she has only had 3 doses introduce Toprol and f/u in 1 week - Vitaliy Garcia will call if BP readings are well-below goal on this med and once off prednison [id number] Brittany Saini MD , [facility], [address] [facility] [place] [address] 03/27/2015 10:04:46 03/27/2015 10:41:26 Intracranial meningioma [id number] Has neuro pending No new sx Close monitoring Hyponatremia 58680846 Hi story of hyponatrem ia in setting of prior mena's and brain lesions as above Last Na 134 - Ms Garcia has been checking monthly Ms Garcia is now off of Lasix and s/p brief course of pred in setting of sinusitis (per endocrine) Ms Garcia and I agree to trend her electrolyt es again in 2-3 weeks (ordered) Will also check Uosms/Fara off Lasix at that time she has ongoing follow-up with endocrine Hypothyroidism 69273248 TSH a bit low in September - repeat with next labs Hypertensive disorder 13364227 BP not at goal in office but at goal at home Goal closer to 140/90 despite age given hx of inrcranial lesions Will hold off on Toprol for now Ms O'Jurado will trend at home f/u in 3 months [id number] Apolinar Meza NP , [facility], [address] [facility] [place] [address] 05/08/2015 15:49:54 05/08/2015 16:46:01 Sinusitis 75334447 Pt experienci ng significan t bilateral facial and frontal sinus discomfort to direct pressure. Otherwise sx are suggestive of viral sinusitis. However due to pt hx of Cushings disease and brain lesions pt is typically treated with antibiotic s when this situation occurs. she is also flying to [place] in 2 days and is concerned about worsening sx. She will be gone for 10 days if sx persist or worsen she is to FU with PCP Dr. Dias Allergic rhinitis 43506770 allergies certainly play a part in pt present sx and health. recommend Flonase, Claritin and saline nasal spray prior to and during traveling. Hypothyroidism 91582819 on synthroid 75mcg daily.- undercare of endocrinol ogy in [facility]. [id number] Brittany Saini MD , [facility], [address] [place] [address] 05/21/2015 16:46:37 05/21/2015 17:49:48 Hyponatremia 21421098 Complex hx including intracrani al lesions and cuhsings secondary to pituitary adenoma Repeat episode with Na to 118 while out of state continue prednisone 5 for now restrict free water Ms Sanchez will contact her endocrine team and we agree she might benefit from a second opinion with Dr Pelaez here as well - will refer Trend BMP in 1 month Intracrani al meningioma [id number] Ms Sanchez is following with neuro [place] [facility] She reports that her known frontal is now slightly enlarged and a second lesion has also been identified posteriorl y on the L Plan with neuro is to watch for 6 months - repeat iaging sooner if new sx continue steroids for now 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 Noted on recent admission in [place] Not able to obtain prior for comparison Will refer to cards in event this is new finding [id number] MD LUCY Antonio, [facility], [address] [facility] [place] [address] 06/26/2015 10:22:10 06/26/2015 11:07:36 Hyponatremia 07287521 E87.1 Complex hx including intracrani al lesions and cuhsings secondary to pituitary adenoma Repeat episode with Na to 118 while out of state recently - now back WNL continue prednisone 5 for now restrict free water encouraged regular sodium intake with diet consider sodium supps second opinion with Dr Pelaez here pending consider renal if SIADH does not seem to be reasonable explanatio n Trend BMP today Hypertensive disorder 38 900916 I10 BP close to goal <140/90 120-130/70 -80 at home continue current management [id number] Yolis Pelaez MD Endocrino logy, [address] [address] 07/28/2015 08:26:35 07/28/2015 09:24:33 Hyponatremia 77238101 E87.1 Syndrome o f inappropriate vasopressin secretion 29822306 E22.2 -decrease free water intake 2 cups instead of 4 daily, continue gatorade, salty foods, cup of milk and juice Essential hypertension 03972980 I10 -trial off irbesartan , may restart in the future if needed -add amlodipine 5mg daily by mouth Central hypothyroidism 31102853 E03.8 -synthroid 75mcg daily Adrenal co rtical hypofunction 277405304 E27.40 -prednison e [id number] Yolis Pelaez MD Endocrino logy, [address] [address] 09/01/2015 07:25:16 09/01/2015 08:01:46 Syndrome of inappropriate vasopressin secretion 11369586 E22.2 -decrease free water intake 2 cups daily, continue gatorade, salty foods, cup of milk and juice Hyponatremia 57067415 E8 7.1 Essential hypertension 62718857 I10 -reconside r irbesartan in the future with careful monitoring of sodium -add metoprolol er 25mg daily -reduce amlodipine 5mg daily by mouth Central hypothyroidism 22667062 E03.8 -synthroid 75mcg daily Adrenal co rtical hypofunction 144324457 E27.40 -prednison e [id number] Brittany Saini MD , [facility], [address] [place] [address] 09/03/2015 10:07:06 09/03/2015 14:25:53 Essential hypertension 33880717 I10 BP at goal but experienci ng possible adverse effects of amlodipine Will stop amlodipine an start metoprolol 25 BP checks at home over the weekend and RN visit early next week to monitor as well Hypothyroidism 34132536 E03.9 Stable - follows with endocrine, therpeutic goals set by them given hypopituit arism Hyponatremia 77644123 E8 7.1 Complex hx including intracrani al lesions, adrenal insufficie ncy Off ARB, increasing dietary sodium, awaiting final plan with regards to daily prednisone supps Continue to monitor Edema of l ower extremity 712439160 R60.0 Ms O and I discussed that this is likely a side effect of amlopdipin e, compounded by her use of prednisone and need for increased dietary sodium We agree to switch BP meds as above We reviewed proper leg elevation and possible use of compressio n stockings Ms O will be in touch in 1 week if she does not experience improvemen t Do note BLANQUITA on exam with TTE 05/2015: EF 60-65%, trace AR, mild MR [id number] Yolis Pelaez MD Endocrino logy, [address] [place] [address] 11/18/2015 08:23:01 11/18/2015 08:57:45 Syndrome of inappropriate vasopressin secretion 85935067 E22.2 -continue free water intake 2 cups daily, continue gatorade, salty foods, cup of milk and juice Essential hypertension 22388336 I10 -metoprolo l er 25mg daily Central hypothyroidism 50015337 E03.8 -synthroid 75mcg daily dispense as written brand name medically necessary Adrenal co rtical hypofunction 208678928 E27.40 -consider hydrocorti nsone 5mg tabs, 1.5 tabs 7.5mg am and 0.5 tabs 2.5mg pm by mouth instead of 10mg daily after discussing with Dr. Hook and Dr. Bay [id number] Brittany Saini MD , [facility], [address] [place] [address] 03/10/2016 09:18:04 03/10/2016 10:17:05 Adult health examination 098648777 Z00.00 see Risk Assessment and Lifestyle Change Counseling section above Counseling [id number] Z71 .9 Essential hypertension 65811736 I10 BP at goal <150/90GFR >60 Continue metoprolol 25 BP checks at homeSodium balance difficult given hyponatrem ia Hypothyroidism 10094853 E03.9 Stable - follows with endocrine, therapeuti c goals set by them given hypopituit arism Hyponatremia 80616008 E8 7.1 Stable NaComplex hx including intracrani al lesions, adrenal insufficie ncyon hydrocorti sone Off ARB, increaser dietary sodium Edema of l ower extremity 543902976 R60.0 Stable, intermitte nt and seasonalTT E 05/2015: EF 60-65%, trace AR, mild MRNl renal functionMa ybe combinatio n of factors: steroid use, sodium in diet We again reviewed proper leg elevation and possible use of compressio n stockings Might benefit from lower dose steroid and/or slight midificati on of dietary sodiumuse of diuretic would be difficult Hyperlipidemia 26931523 E78.5 Lipids at goal on crestor, LDL <100contin ue statin and heart healthy diet Intracrani al meningioma 901860075 D32.0 StableFoll ows with NS - repeat imaging pending Adrenal co rtical hypofunction 847133204 E27.40 Following with endo as aboveconti nue hydrocorti sone [id number] Brittany Saini MD , [facility], [address] [facility] [place] [address] 03/30/2016 11:02:36 03/30/2016 11:51:23 Essential hypertension 59109049 I10 BP above goalWe agree to increase BB to 1.5 or 2 tabs a dayMs O will check BPs at home and will call with readings for additional titration Spasm of s keletal muscle of thorax 162287612 M62.838 Suspect sx are muscle spasm - possibly compensato ry ins etting of nuderlying disc problem, less likely referrred abd pain or pneumonic processWe agree to try PT and monitor [id number] Veronica Villalobos, PT Physical Therapy, [address] [place] [address] 04/29/2016 09:46:48 04/29/2016 12:23:02 Spasm of skeletal muscle of thorax 706188204 M62.987 [id number] Veronica Villalobos, PT Physical Therapy, [address] [place] [address] 05/09/2016 11:01:18 05/09/2016 15:28:28 Spasm of skeletal muscle of thorax 300540203 M62.929 [id number] Veronica Villalobos, PT Physical Therapy, [address] [place] [address] 05/17/2016 10:58:42 05/17/2016 12:20:30 Spasm of skeletal muscle of thorax 998281546 M62.549 [id number] Veronica Villalobos, PT Physical Therapy, [address] [place] [address] 05/19/2016 10:53:13 05/19/2016 12:14:40 Spasm of skeletal muscle of thorax 313637503 M62.491 [id number] Yolis Pelaez MD Endocrino logy, [address] [place] [address] 05/24/2016 08:27:11 05/24/2016 09:56:20 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 Central hypothyroidism 56283937 E03.8 -continue synthroid brand name only 75mcg daily Syndrome o f inappropriate vasopressin secretion 33191426 E22.2 -continue free water intake 2 cups daily, continue gatorade, salty foods, cup of milk and juice Essential hypertension 77794423 I10 -increase metoprolol er 75mg (50mg tab and 25mg tab) by mouth once daily Adrenal co rtical hypofunction 610815997 E27.40 -hydrocort isone 5mg tabs, 1 tabs 5mg am and 0.5 tabs 2.5mg pm by mouth daily daily-cons ider 1.5 tabs 7.5mg hydrocorti sone if low energy dizzy in am Hypertensive disorder 38 589708 I10 [id number] Veronica Villalobos, PT Physical Therapy, [address] [place] [address] 05/26/2016 10:58:09 05/26/2016 11:49:01 Spasm of skeletal muscle of thorax 877191658 M62.050 [id number] Brittany Saini MD , [facility], OFFICE [address] [facility] [address] 06/16/2016 12:49:51 06/16/2016 13:33:51 Essential hypertension 04127469 I10 BP close to goal on BB at 75mg dailyHR 50s-60sMs O will check BP in community and portal in resultsno change in meds todaycould consider restarting ARB with close monitoring of Na [id number] Brittany Saini MD , [facility], OFFICE [address] [facility] [place] [address] 09/06/2016 07:57:29 09/06/2016 08:28:06 Benign essential hypertension 8694232 I10 Blood pressure above goal here but <150/90 in community (including with RN at hospital)L ytes and GFR at goalContin ue current management , f/u in 6 months Mixed hyperlipidemia 267 476513 E78.2 Lipids at goal on statinTren d in 6 months Cough 55779000 R05 Chronic dry cough worse at night x several monthsNo associated systemic sxddx: RAD, GERD, lung process, CV in origin- check CXR- review TTE results from 2014- if CXR WNL, trial H2 blcoker then ppi if no effect- if no effect with PPI, check PFTs [id number] Lita Mir MD , [facility], OFFICE [address] [facility] [place] [address] 10/26/2016 13:02:02 10/26/2016 13:49:43 Acute upper respiratory infection 69182019 J06.9 Educated patient that URI is a viral illness of the upper airways. It is not bacterial and does not benefit from antibiotic s. Average duration of URI is 7-10 days but in a recent trial, treatment at 7-10 days of illness with antibiotic s, intranasal steroids, or placebo did not alter natural history at 3 weeks. Recommende d symptomati c treatments including NSAIDS, semi-uprig ht sleep position, antihistam giovanni at night, limited course of nasal sympathomi metics (afrin) and/or cough syrups, and nasal saline rinses with soft squeeze bottle or Neti pot. Return for fevers > 101 for 3 days, worsening sinus pain, or failure to resolve in 2-4 weeks. Cough 14216691 R05 Pt presents with complaint of cough for several days, likely due to viral URI Pt doesn't have asthma and has no wheezing or signs of respirator y distress. Symptoms are most likely related to bronchitis vs post nasal drip. Supportive measures reviewed including nasal saline and staying hydrated. Pt reminded not to smoke. Pt will follow up if symptoms worsen or if develops fever, increased sob, or increased sputum. [id number] Brittany Saini MD , [facility], OFFICE [address] [place] [address] 11/07/2016 14:28:52 11/07/2016 15:27:37 Acute upper respiratory infection 70294674 J06.9 Suspect acute bronchitis after successful ly treated bacterial sinusitis. Advised OTC antihistam ine/decong estants for persistent right ear fullness. Continue benzonatat e prn for cough.Disc ussed supportive care, including rest, fluids, and OTC and home remedies as needed.F/U for any worsening or failure to improve in 2-3 weeks. [id number] Brittany Saini MD , [facility], OFFICE [address] [place] [address] 11/17/2016 11:35:51 11/17/2016 12:31:08 Hyponatremia 54836761 E87.1 Na now back to WNLComplex hx including intracrani al lesions, adrenal insufficie ncyon hydrocorti sone Off ARB, increased dietary sodium, following with endo Essential hypertension 46085966 I10 BP close to goal today - no role for med adjustment at this time Vertigo 753715062 R42 Suspect episode of vertigo 2 days ago BPPV or vestibulit is in setting of resolving RSV infectionN euro exam WNL today and sx resolved rapidly without recurrence Do note Ms O reports HR 40 at homeGiven hx of meningioma , low threshold to consider intracrani al process if sx recur - Ms O is due for neuro f/u and imaging, and she will call to schedule this - agrees to review this episode with them as wellIf HR persists below 50, will check EKG and consider decreasing BB Upper resp iratory infection 66269712 J06.9 RSV (+) in EDSx significan tly improved - no fevers, no wheeze, cough resolvingL ungs clear on examcontin ue to monitor [id number] Yolis Pelaez MD Endocrino logy, [facility] [address] [facility] [place] [address] 11/22/2016 09:19:09 11/23/2016 07:44:03 Hypothyroidism 46270346 E03.9 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 Essential hypertension 77167287 I10 -metoprolo l er 75mg (50mg tab and 25mg tab) by mouth once daily-add back amlodipine 5mg by mouth daily 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 -continue synthroid brand name only 75mcg daily Syndrome o f inappropriate vasopressin secretion 92661701 E22.2 -limit free water (oj, milk, water) intake 3 to 4 cups daily, continue gatorade, salty foods Adrenal co rtical hypofunction 422480654 E27.40 -hydrocort isone 5mg tabs, 1.5 tabs 7.5mg am and 0.5 tabs 2.5mg pm after lunch by mouth daily daily Hypertensive disorder 38 369404 I10 Hypertensive urgency 443 537958 I16.0 -clonidine 0.1mg tab, 2 tabs 0.2mg by mouth once now, may repeat 1 tab 0.1mg by mouth every 1 to 2h for up to 4h as needed, monitor bp in clinic [id number] Brittany Saini MD FP, [facility], OFFICE [address] [facility] [place] [address] 12/07/2016 09:02:32 12/07/2016 09:30:16 Essential hypertension 12949493 I10 BP close to goal today but labile at homerecent episode of HTN urgency at endo f/ustarted amlodipine since but has not been tolerating due to side effects (flushing, LE edema)BP med choice limited: HR in low 50s, ongoing electrolyt e disturbanc es, CCB side eeffectsWi ll stop amplodipin e, start clonidine 0.1 mg BID - will start with 1/2 tab at camilo to assess tolerancef /u in 2 weeksconti nue to monitor BP at homeConsid er metanephri althea if BP remains difficult to control Rachel [id number] L71.9 [id number] Brittany Saini MD FP, [facility], OFFICE [address] [facility] [place] [address] 12/22/2016 14:20:15 12/22/2016 15:01:46 Essential hypertension 69162197 I10 BP at goal today here and at home, but HR in 40s on metoprolol 100mg recent episode of HTN urgency BP meds to-date:- Irbesartan - stopped bc of possible contributi on to hyponatrem ia- HCTZ - stopped secondary to urinary side effects and electrolyt e disturbanc es- amlodipine - stoped due to side effects (flushing, LE edema) Will lower metoprolol back to 75mg daily given bradycardi a Will add back ARB - will trial lowest dose losartan Monitor lytes in 4 weeks Could consider clonidine in stead of BB, could consider adding or rotatating to hydralazin e Ms O will continue to monitor BP at home and will be in touch if not <150/90 or HR does not respond to lowering of BB dose Candidal intertrigo 2661 07436 B37.2 Suspect rash beneath breasts is candidaInc reased risk given chronic steroid useTrial clotrimazo le - proper administra tion and duration of tx reviewedWI ll check A1C with next labs [id number] Yolis Pelaez MD Endocrino logy, [facility] [address] [facility] [place] [address] 02/27/2017 08:57:31 02/27/2017 09:37:33 Hypothyroidism 99810303 E03.9 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 69895797 E27.49 Central hypothyroidism 32410344 E03.8 -continue synthroid brand name only 75mcg daily Essential hypertension 70696023 I10 -metoprolo l er 75mg (50mg tab and 25mg tab) by mouth once daily-add furosemide 20mg by mouth once daily Syndrome o f inappropriate vasopressin secretion 69994268 E22.2 -limit free water (oj, milk, water) intake 3 to 4 cups daily, continue gatorade, salty foods Adrenal co rtical hypofunction 309216544 E27.40 -stop hydrocorti sone 5mg tabs-predn isone 1mg tabs, 3 tabs (3mg) by mouth daily; may take 9mg daily for 2 to 3d if sick, ie flu Hypertensive disorder 38 852620 I10 [id number] Hernesto Rudolph MD , [facility], OFFICE [address] [facility] [place] [address] 03/13/2017 13:32:46 03/13/2017 14:33:05 Adult health examination 813102598 Z00.00 see Risk Assessment and Lifestyle Change Counseling section above Counseling 121823307 Z71 .9 Essential hypertension 71937821 I10 Not at goal < 150/90. Cont Metop 75 mg reilly (did not tolerate increase; became bradycardi c); cont losartan 25 mg daily. Will consider increasing to 50 mg, but will discussed with Dr. Pelaez first. She's nervous about taking the furosemide that he recommende d given her hx of hyponatrem ia. Hyponatremia 97185496 E8 7.1 Most recent BMP wnl. Syndrome o f inappropriate vasopressin secretion 57710533 E22.2 Has been told to limit free water intake. 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 Pelaez. Central hypothyroidism 10038110 E03.8 Stable on synthroid. Intracrani al meningioma 290706387 D32.0 Gets regular MRI brain for f/u. [id number] Hernesto Rudolph MD , [facility], OFFICE [address] [facility] [place] [address] 03/30/2017 09:32:12 03/30/2017 10:20:59 Essential hypertension 19507238 I10 At goal. Cont Metop 75 mg daily (did not tolerate increase; became bradycardi c); continue increased losartan (50 mg) for now, although may be cause of cough. Will continue to monitor. Cough 24841495 R05 Chronic intermitte nt, mild cough, but has gotten worse over the last week. No preceding viral sx. Not really having allergic sx. But will try tx for allergic rhinitis. Denies GERD sx. Ddx also includes ARB induced. 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 Discussed ice, occasional NSAID use, phsyical therapy [id number] Marlen Jolley Physical Therapy, [facility] [address] [place] [address], [place] [address] 04/20/2017 14:23:39 04/20/2017 15:43:06 Pain in left knee 4769342981 21609 M25.814 [id number] Marlen Jolley Physical Therapy, [address] [place] [address] 04/24/2017 14:56:15 04/24/2017 15:54:04 Pain in left knee 6248843103 53030 M25.909 [id number] Marlen Jolley Physical Therapy, [address] [place] [address] 04/27/2017 13:58:02 04/28/2017 10:20:27 Pain in left knee 8799417554 95681 M25.782 [id number] Marlen Jolley Physical [facility], [address] [place] [address] 05/01/2017 14:52:53 05/02/2017 08:52:14 Pain in left knee 5718001109 87636 M25.009 [id number] Marlen Jolley Physical [facility], [address] [place] [address] 05/04/2017 14:54:47 05/04/2017 15:52:39 Pain in left knee 3488033352 76967 M25.662 [id number] Hernesto Rudolph MD , [facility], OFFICE [address] [place] [address], [place] [address] 05/11/2017 13:05:59 05/11/2017 17:22:37 Hypocortisolism secondary to another disorder 62329889 E27.49 Stable on daily hydrocorti sone. Hyponatremia 91800230 E8 7.1 Recent BMP with mildly low Na of 132. Plan to check in a few weeks after decrease in losartan. Essential hypertension 90006987 I10 At goal, even though losartan decreased to 25 mg daily due to concern for impact on sodium. Will continue for now as cough is minimal (improved with drop in dose). Cont Metop 75 mg daily (did not tolerate increase; became bradycardi c). Will hold on adding furosemide at this time. Also did not tolerate amlodipine in the past. 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 41022206 E27.49 Essential hypertension 02630330 I10 -losartan 25mg by mouth daily -metoprolo l er 75mg (50mg tab and 25mg tab) by mouth once daily-add furosemide 20mg by mouth twice daily-repe at serum sodium in 1 to 2 weeks, monthly as needed Syndrome o f inappropriate vasopressin secretion 37724094 E22.2 -limit free water (oj, milk, water) intake 3 to 4 cups daily, continue gatorade, salty foods Adrenal co rtical hypofunction 702138582 E27.40 -change hydrocorti sone 5mg tabs, 1.5 tabs am and 1/2 tab pm instead of 1 tab daily Hypertensive disorder 38 321019 I10 Hypertensive urgency 443 190354 I16.0 -clonidine 0.1mg tab, 1 tabs 0.1mg by mouth once now, may repeat 1 tab 0.1mg by mouth every 1 to 2h for up to 5h as needed, monitor bp in clinic [id number] MD LUCY Cook, [facility], OFFICE [address] [place] [address] 06/14/2017 12:51:11 06/14/2017 13:32:06 Essential hypertension 48821523 I10 At goal < 150/90 today. Although was very high at endocrinol ogy, 200/100 and came down with cloniding. No symptoms at the time. Home BP checks not elevated.- contiue losartan 25 mg daily-cont Metop 75 mg daily; would not go higher given sinus bradycardi a.-did not tolerate amlodipine in the past due to leg swelling-a dvised contiue with trial of furosemide 20 mg daily; will recheck Na in 1 week.-refe r to nephrology as consult for BP management in setting of hx of hypnatremi a.-clonidi ne as needed. Hyponatremia 92279864 E8 7.1 138 to 134 after starting furosemide -recheck in 1 week. Hypothyroidism 42730997 E03.9 Recent T4 stable on current dose of levothyrox ine. Following with endocrinol ogy. Active or passive immunization 972685881 Z23 Syndrome o f inappropriate vasopressin secretion 74491076 E22.2 Has been told to limit free water intake. Adrenal co rtical hypofunction 676696204 E27.40 Continue hydrocorti sone as Dr. pelaez (endo) instructed . [id number] Hernesto Rudolph MD FP, [facility], OFFICE [address] [place] [address] 09/14/2017 12:54:39 09/14/2017 13:36:44 Essential hypertension 81455111 I10 Improved. At nephrology 's rec, on lasix BID. They recommende d no added salt to her diet.-cont iue losartan 25 mg daily-cont Metop 75 mg daily; would not go higher given sinus bradycardi a.-did not tolerate amlodipine in the past due to leg swelling Hyperlipidemia 23178403 E78.5 At goal on rosuvastat in. Central hypothyroidism 49610024 E03.8 Stable on synthroid. Followed by endocrinol ogy. [id number] FESTUS Webster FP, [facility], OFFICE [address] [place] [address] 10/09/2017 12:30:40 10/09/2017 13:16:13 Influenza caused by Influenza A virus 376120212 J09.X2 Rapid flu test positive in clinic today for Flu AJust outside of 48 hour window for antiviral, but upon discussion with pt, will treat due to possible immunocomp Ben morales to clinic for worsening or unresolved symptoms Pneumonia 869451498 J18. 9 Will treat for pneumonia based on lung examMay use over the counter cough medicine without DM (since DM seems to promote adverse effects per pt), warm teas with honey, lozenges, ibuprofen for fever and coughRetur n to clinic for worsening or unresolved symptoms for CXR Hyponatremia 65367597 E8 7.1 Will check Na, which tends to dip with acute illness [id number] Hernesto Rudolph MD FP, [facility], OFFICE [address] [place] [address] 03/23/2018 15:39:08 03/23/2018 16:16:06 Acute upper respiratory infection 42974619 J06.9 Educated patient that URI is a viral illness of the upper airways. It is not bacterial and does not benefit from antibiotic s. Average duration of URI is 7-10 days but in a recent trial, treatment at 7-10 days of illness with antibiotic s, intranasal steroids, or placebo did not alter natural history at 3 weeks. Recommende d symptomati c treatments including NSAIDS, semi-uprig ht sleep position, antihistam giovanni at HS, limited course of nasal sympathomi metics and/or cough syrups, and nasal saline rinses with soft squeeze bottle or Neti pot. Return for fevers > 101 for 3 days, worsening sinus pain, or failure to resolve in 2-4 weeks. Essential hypertension 91004155 I10 Improved. At nephrology 's rec, on lasix BID. They recommende d no added salt to her diet.-cont inue losartan 25 mg daily-cont Metop 75 mg daily; would not go higher given sinus bradycardi a.-did not tolerate amlodipine in the past due to leg swelling Hyperlipidemia 86274493 E78.5 At goal on rosuvastat in. Allergic rhinitis 786225 04 J30.9 see above. Cough 07817003 R05 x 1 week. ? post nasal drip/bronc hitis-richard t allergic rhinitis with zyrtec and flonase-be nzonatate as needed for cough suppressio n-trial inhaler-f/ u if not improving or worsening [id number] MD LUCY Cook, [facility], OFFICE [address] [facility] [place] [address] 03/26/2018 13:53:00 03/26/2018 14:41:56 Adult health examination 097907914 Z00.00 see Risk Assessment and Lifestyle Change Counseling section above Counseling 527550834 Z71 .9 Depression screening 171 598441 Z13.89 depression screening tool administer ed, entered into emr, scored and discussed, time greater than 7.5 minutes Active or passive immunization 846992309 Z23 Discussed risks and benefits. [id number] MD LUCY Camara, [facility], OFFICE [address] [facility] [place] [address] 11/26/2018 13:04:11 11/26/2018 13:53:31 Essential hypertension 43790633 I10 Improved.- continue furosemide 20 mg BID at nephrology 's rec and no added salt to her diet.-cont inue losartan 25 mg daily-cont Metop 75 mg daily; would not go higher given sinus bradycardi a.-did not tolerate amlodipine in the past due to leg swelling Hyperlipidemia 51179268 E78.5 At goal on rosuvastat in. Shoulder joint pain 2679 98856 M25.519 arm falls asleep at night; avoid lying at that side; activity modificati on with knitting/w eaving; if worsening pain, f/u [id number] Lita Mir MD , [facility], OFFICE [address] [facility] [place] [address] 01/09/2019 16:00:11 01/09/2019 17:04:09 Diverticulitis 312469072 K57.92 Just discharged after admission for diverticul itis/intra mural abscess. Tx with IV antibiotic s. Completing course of moxifloxac in 400 mg daily Hyponatremia 93345141 E8 7.1 Na on admission was 125. Furosemide was held in the hospital. She's restarted- recheck bmp in 1 month Candidiasis of mouth 797 47780 B37.0 improving with nystatin Essential hypertension 43332890 I10 NOT at goal < 140/90-con tinue furosemide 20 mg BID at nephrology 's rec and no added salt to her diet.-cont inue losartan 25 mg daily-cont Metop 75 mg daily; would not go higher given sinus bradycardi a.-did not tolerate amlodipine in the past due to leg swelling-f /u in 1 month to recheck BP once she's off stress dosing of hydrocorti sone Hyperlipidemia 27295577 E78.5 At goal on rosuvastat in. Hypothyroidism 48579228 E03.9 Recent T4 stable on current dose of levothyrox ine. Following with endocrinol ogy. Adrenal co rtical hypofunction 222480513 E27.40 doing 30 mg hydrocorti sone because of recent illness-manning s close f/u with Dr. 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 00290734 E27.49 Essential hypertension 89206453 I10 -losartan 25mg by mouth daily -metoprolo l er 75mg (50mg tab and 25mg tab) by mouth once daily-furo semide 20mg by mouth twice daily Syndrome o f inappropriate vasopressin secretion 07835526 E22.2 -limit free water (oj, milk, water) intake 3 to 4 cups daily, continue gatorade, salty foods Adrenal co rtical hypofunction 268485208 E27.40 -hydrocort isone 5mg tabs, reduce from 25mg once daily to 2 tabs 10mg by mouth 2 x/d-in 1 to 2 d if feeling well, reduce 2 tabs am and 1 tab pm-in 1 to 2d if feeling well, return to 1.5 tabs am and 1/2 tab pm instead of 1 tab daily Hypertensive disorder 38 427757 I10 [id number] Lita Mir MD , [facility], OFFICE [address] [place] [address] 02/06/2019 11:21:35 02/06/2019 13:56:01 Screening mammography 46331170 Z12.31 Hyponatremia 84679240 E8 7.1 Last BMP appropriat e Essential hypertension 41848338 I10 At goal < 140/90-con tinue furosemide 20 mg BID at nephrology 's rec and no added salt to her diet.-cont inue losartan 25 mg daily-cont Metop 75 mg daily; would not go higher given sinus bradycardi a.-did not tolerate amlodipine in the past due to leg swelling Tick bite without infection 765433020 T14.8XXA Possible tick bite. Wash daily with warm water and non-scente d soap. Monitor for symptoms. Antibiotic s not indicated in this case. We discussed the following: tick bites that carry an increased risk of getting Lyme disease have to be from deer ticks and the tick has to be attached for 36 hours or more. Generally, the tick needs to be engorged with blood and therefore more round (spherical ) before the bacteria that live in its stomach parts can make their way back into a human host and cause infection. If these conditions are met, taking a preventive dose of antibiotic s (doxycycli ne) within 3 days of tick removal makes sense. With doxycyclin e there is a risk of allergic reaction, photosensi tivity, and nausea and vomiting. Technique for tick removal: pull the tick straight out (perpendic ular to the skin) by grasping it as close to the skin as possible, ideally with tweezers or similar instrument . There is no need to probe the wound to remove retained mouth parts. There is usually a reaction to the tick's saliva causing a small round red and purple rash at the bite site. This is different from the early lyme rash (erythema chronicum migrans), which has to be 2 inches in diameter or larger and typically has a bright red outer area while the area between the bite site and the outer edge looks bruised or starts to clear and look like normal skin again. Prevention : avoid tall grass, wear pants, use DEET, and perform daily tick checks. Monitor yourself for fevers, bullseye rash, swollen joints, Elena's palsy (weakness of one side of your face), headache/n victor m stiffness, or loss of consciousn ess in the next 30 days as any of these could be evidence of Lyme infection. Lyme testing is only helpful in certain situations such as when a patient presents with new heart block, unexplaine d arthritis in one joint, or Elena's palsy. [id number] Lita Mir MD , [facility], OFFICE [address] [facility] [place] [address] 05/30/2019 09:19:28 05/30/2019 10:22:11 Adult health examination 842418719 Z00.00 see Risk Assessment and Lifestyle Change Counseling section above Counseling 193148941 Z71 .9 Depression screening 171 891248 Z13.89 depression screening tool administer ed, entered into emr, scored and discussed, time greater than 7.5 minutes Hypothyroidism 71227133 E03.9 stable on current dose of levothyrox ine. TSH is expected to be low as this is central hypothyroi dism. defer management to endocrinol ogy. Hyperlipidemia 79443545 E78.5 At goal on rosuvastat in. Essential hypertension 84693457 I10 At goal < 140/90-con tinue furosemide 20 mg BID at nephrology 's rec and no added salt to her diet.-cont inue losartan 25 mg daily-cont Metop 75 mg daily; would not go higher given sinus bradycardi a.-did not tolerate amlodipine in the past due to leg swelling Diverticulitis 300844133 K57.92 Had f/u colonoscop y; reports polyps but was told she could f/u in 10 years Hyponatremia 22863327 E8 7.1 Na has been stable. 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 53633555 E27.49 Essential hypertension 09119333 I10 -losartan 25mg by mouth daily -metoprolo l er 50mg once daily instead of 75mg daily-furo semide 20mg by mouth twice daily Syndrome o f inappropriate vasopressin secretion 36185033 E22.2 -limit free water (oj, milk, water) intake 3 to 4 cups daily, continue gatorade, salty foods Adrenal co rtical hypofunction 210654799 E27.40 -hydrocort isone 5mg tabs, reduce from 25mg once daily to 2 tabs 10mg by mouth 2 x/d-in 1 to 2 d if feeling well, reduce 2 tabs am and 1 tab pm-in 1 to 2d if feeling well, return to 1.5 tabs am and 1/2 tab pm instead of 1 tab daily Hypertensive disorder 38 216272 I10 [id number] Jose Rodriguez Jr. MD , [facility], [address] [facility] [place] [address] 11/06/2019 13:37:56 11/06/2019 14:20:06 Chronic maxillary sinusitis 14478539 J32.0 Discussed importance of increased hydration. Advised plain Robitussin /Mucinex/g uaifenesin as needed for cough. Suggested nasal saline spray or sinus rinse to treat nasal congestion , postnasal drip, or sinus pressure. Can take ibuprofen and or acetaminop hen as needed for fever, sore throat, or muscle aches. 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 Has been counseled on stress dosing of hydrocorti sone previously . [id number] oYlis Pelaez MD Endocrino logy, [address] [address] 02/20/2020 08:01:29 02/20/2020 16:54:53 Central hypothyroidism 91847614 E03.8 -synthroid brand name only 75mcg mcg daily, aim for mid normal range per your preference Adrenal co rtical hypofunction 141549899 E27.40 -hydrocort isone 5mg tabs, 1.5 tbs 7.5mg in the am, and 1/2 tab afternoon , total of 10mg daily Syndrome o f inappropriate vasopressin secretion 26386894 E22.2 -reduce water or liquids by 1 cup daily -limit free water (oj, milk, water) intake 3 to 4 cups daily, continue gatorade, salty foods Hyperlipidemia 01326154 E78.5 Essential hypertension 29922148 I10 -losartan 25mg by mouth daily -metoprolo l er 50mg once daily instead of 75mg daily-furo semide 20mg by mouth twice daily Neoplasm o f pituitary gland 790149593 D49.7 Hypothyroidism 78386814 E03.9 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 86402991 E27.49 Hypertensive disorder 38 144131 I10 [id number] Yolis Pelaez MD Endocrino logy, [facility] [address] [facility] [place] [address] 08/24/2020 09:58:08 08/24/2020 11:20:48 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 -reduce synthroid brand name only 75mcg mcg daily once daily 6d a week and none once weekly, aim for mid normal range per your preference -hope that this reduction improves difficulty getting to sleep and insomnia 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 -hydrocort isone 5mg tabs, 1.5 tbs 7.5mg in the am, and 1/2 tab afternoon , total of 10mg daily 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 Hyperlipidemia 93471953 E78.5 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.2 -limit free water (oj, milk, water) intake 3 to 4 cups daily, continue gatorade, salty foods -sodium check every 3mo as needed Essential hypertension 55582027 I10 -losartan 25mg by mouth daily -metoprolo l er 50mg once daily instead of 75mg daily-furo semide 20mg by mouth twice daily Hypothyroidism 34167318 E03.9 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 Hypertensive disorder 38 301117 I10 [id number] Lita Mir MD , [facility], [address] [place] [address] 11/10/2020 10:04:29 11/10/2020 13:41:12 Adult health examination 491056221 Z00.00 see Risk Assessment and Lifestyle Change Counseling section above -colonosco py done 2019 and was told not due for 10 years -prefer yearly mammos Her has been very sick and currently in rehab; doing better Counseling 078192609 Z71 .9 Depression screening 171 364054 Z13.89 depression screening tool administer ed, entered into emr, scored and discussed, time greater than 7.5 minutes Hypothyroidism 34511619 E03.9 stable on current dose of levothyrox ine. TSH is expected to be low as this is central hypothyroi dism. defer management to endocrinol ogy. Hyperlipidemia 02387562 E78.5 At goal on rosuvastat in. Essential hypertension 05745509 I10 At goal < 140/90 -continue furosemide 20 mg BID at nephrology 's rec and no added salt to her diet. -continue losartan 25 mg daily -cont Metop 75 mg daily; would not go higher given sinus bradycardi a. -did not tolerate amlodipine in the past due to leg swelling Diverticulitis 418257814 K57.92 Had f/u colonoscop y; reports polyps but was told she could f/u in 10 years Hyponatremia 02277933 E8 7.1 Na has been stable. Adrenal co rtical hypofunction 295333224 E27.40 on hydrocorti sonefollow s with endocrinol ogy Screening for alcohol abuse 157680866 Z13.39 Central hypothyroidism 40356171 E03.8 Stable on synthroid. Followed by endocrinol ogy. Screening for disorder 929010798 Z11.59 [id number] Lita Mir MD , [facility], [address] [facility] [place] [address] 05/14/2021 13:26:15 05/14/2021 13:47:23 Essential hypertension 06136191 I10 At goal < 140/90 -continue furosemide 20 mg BID at nephrology 's rec and no added salt to her diet. -continue losartan 25 mg daily -cont Metop 75 mg daily; would not go higher given sinus bradycardi a. 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 managed by endo Central hypothyroidism 90742925 E03.8 Stable on synthroid. Followed by endocrinol ogy. Hyponatremia 95431115 E8 7.1 Na has been stable. Adrenal co rtical hypofunction 077281451 E27.40 on hydrocorti sonefollow s with endocrinol ogy Hypothyroidism 78008676 E03.9 stable on current dose of levothyrox ine. TSH is expected to be low as this is central hypothyroi dism. defer management to endocrinol ogy. Hyperlipidemia 64497615 E78.5 At goal on rosuvastat in. 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 08283341 E27.49 Central hypothyroidism 31478636 E03.8 Adrenal co rtical hypofunction 699516556 E27.40 -hydrocort isone 5mg tabs, 1.5 tbs 7.5mg in the am, and 1/2 tab afternoon , total of 10mg daily; increase to 6 tabs in the am and 3 tabs in the evening if fever or other serious illness -increase hydrocorti sone when sick/stres sed -injection solucortef 100mg IM or subcut if severe injury, loss of consciousn ess, or inability to tolerate oral medicine due to severe nausea/vom iting 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 72594270 E22.2 -limit free water (oj, milk, water) intake 3 to 4 cups daily-cont inue gatorade, salty foods -furosemid e 20mg by mouth twice daily -sodium check every 2mo as needed Hyperlipidemia 74643207 E78.5 Essential hypertension 60869765 I10 -losartan 25mg by mouth daily -metoprolo l er 50mg once daily-furo semide 20mg by mouth twice daily Hypertensive disorder 38 926450 I10 [id number] Lita Mir MD , [facility], [address] [place] [address] 12/24/2021 13:42:30 12/24/2021 14:44:47 Adult health examination 607515479 Z00.00 see Risk Assessment and Lifestyle Change Counseling section above -colonosco py done 2019 and was told not due for 10 years -prefer yearly mammos Her has continued to have health issues Counseling 991466217 Z71 .9 Depression screening 171 652248 Z13.31 depression screening tool administer ed, entered into emr, scored and discussed, time greater than 7.5 minutes Screening for alcohol abuse 234255662 Z13.39 Hypothyroidism 14786760 E03.9 stable on current dose of levothyrox ine. TSH is expected to be low as this is central hypothyroi dism. defer management to endocrinol ogy. Hyperlipidemia 57230143 E78.5 At goal on rosuvastat in. Essential hypertension 71915294 I10 At goal < 140/90 -continue furosemide 20 mg BID at nephrology 's rec and no added salt to her diet. -continue losartan 25 mg daily -cont Metop 75 mg daily; would not go higher given sinus bradycardi a. -did not tolerate amlodipine in the past due to leg swelling Diverticulitis 826522903 K57.92 Had f/u colonoscop y; reports polyps but was told she could f/u in 10 years Hyponatremia 14939346 E8 7.1 Na has been stable. Adrenal co rtical hypofunction 319249560 E27.40 on hydrocorti sonefollow s with endocrinol ogy Central hypothyroidism 93637761 E03.8 Stable on synthroid. Followed by endocrinol ogy. Eruption 494474629 R21 shawl/v -sign. improving. no systemic symptoms. monitor and follow up if any new symptoms /concerns. [id number] Lita Mir MD , [facility], [address] [facility] [place] [address] 04/12/2022 15:08:45 04/12/2022 15:58:19 Hyponatremia 72675686 E87.1 Na has trended down which I suspect related to this acute illness.-h as increased her hydrocorti sone per dr. lang ntinue furosemide -restrict liquids to 1.5 L-recheck on Diverticulitis 625069103 K57.92 Seen in the ER and CT showed acute diverticul itis. Unfortunat yohan allergic to flagyl and pcn so put on moxifloxac in and has not been feeling well on this (weak, lightheade d, off balance). Stopped after 5 days. Diverticul itis symptoms largely resolved.- continue OFF moxifloxac in (although some of these symptoms might be related to her hyponatrem ia)-follow up in 1 week [id number] MD LUCY Camara, [facility], [address] [place] [address] 04/20/2022 10:54:07 04/20/2022 11:26:30 Diverticulitis 367316345 K57.92 resolved. Hyponatremia 92046286 E8 7.1 Improved.- recheck bmp-has increased her hydrocorti sone per dr. pelaez; consider going back down to usual dose/msg dr. frederick-co ntinue furosemide -go back to your usual liquids Hypokalemia 85374498 E87 .6 -discussed high potassium foods-rech victor m Essential hypertension 82786035 I10 NOT At goal < 140/90; could be related to increased dose of steroid. -continue furosemide 20 mg BID at nephrology 's rec and no added salt to her diet. -continue losartan 25 mg daily -cont Metop 50 mg daily; -did not tolerate amlodipine in the past due to leg swelling Adrenal co rtical hypofunction 821912429 E27.40 on hydrocorti sonefollow s with endocrinol ogy [id number] Remigio Nelson MD FP, [facility], [address] [place] [address] 06/17/2022 14:41:18 06/22/2022 09:27:15 Abdominal pain 14479424 R10.9 LLQ and lower medial x 2-3 days. Suspect diverticul itis. Denies fever/chil ls. Appetite and BMs normal. Discussed options: watchful waiting for 48 hours vs presumptiv e treatment. Given mild sxs we both agree watchful waiting is appropriat e. She will stay on liquid diet. Lab work today and will order abdominal CT. Discussed importance of low threshold for ED: Fever/chil ls, n/v, decreased energy/fartun etite, worsening pain. Does have PCN and Flagyl allergy. Did not tolerate moxifloxac in in past. [id number] Lita Mir MD , [facility], [address] [place] [address] 06/20/2022 10:39:08 06/20/2022 11:34:42 Active or passive immunization 999875235 Z23 Immunized for seasonal flu. Diverticul osis of colon 361609314 K57.30 Moderate diverticul osis w/o diverticul itis noted on last colonoscop y 03/26/19. Current LLQ pain suspicious for diverticul itis. Pending abdominal CT scan.Discu ssed high fiber diet as preventati ve. Continue primarily liquid/low fiber diet as treatment. Abdominal pain 33338750 R10.9 LLQ and lower medial x 6 days. Continue to suspect diverticul itis.Lab work reviewed, normal WBC, no fever/chil ls. No clear evidence she would benefit from antibiotic tx. Does have PCN and Flagyl allergy. Did not tolerate moxifloxac in in past.Discu ssed options: continue supportive care vs presumptiv e treatment. Given mild sxs and improvemen t with bowel rest, will continue supportive measures.C ontinue liquid diet, may advance to soft, BRAT, low-fiber diet as tolerated. Should return to liquids only if any increase in abdominal pain.Abdom inal CT pending insurance approval. Discussed importance of low threshold for ED: fever/chil ls, n/v, decreased energy/fartun etite, worsening pain. F/u PRN. [id number] Lita Mir MD , [facility], [address] [facility] [place] [place] [address] 07/30/2022 10:46:36 07/30/2022 19:29:19 Cough 91433214 R05.9 Centor score 0/5. POC strep neg. Likely viral URI w/ post-nasal drip. Exam today reassuring , no evidence of pneumonia or bronchitis .Given cough interrupti ng sleep, offered nighttime cough suppressan t. Risks/bene fits/side effects reviewed, pt aware not to drive or drink alcohol with use. Continue supportive measures, f/u PRN worsening sx or failure to improve. Fever 303255402 R50.9 Abrupt onset cough, congestion , fever and chills likely viral syndrome. D/dx: COVID-19, other viral syndrome, GAS/strep throat, asthma/domingo ctive airway, gastritis. We discussed options, COVID test collected. Sick for >3 days so limited benefit of flu testing, deferred. She is not so unwell as to need to go to the ER immediatel y. Reviewed indication s for urgent eval/ED visit.Cont inue supportive care, rest, plenty of oral fluids, cough/deep breathing. Follow-up as needed for worsening symptoms, if fever worsens or persists, or failure to improve. Upper resp iratory infection 83262009 J06.9 Self care measures reviewed and encouraged (fluids, steam inhalation , adequate rest). F/U if sx worsen or aren't resolving. [id number] Danielle Strange PA-C , [facility], OFFICE [address] [facility] [place] [address] 09/30/2022 15:46:06 09/30/2022 16:32:27 Essential hypertension 48000486 I10 BP no longer at goal < 130/80, and now also with new onset fluid retention (mild). Fortunatel y, no hypertensi ve urgency based on exam at this time.Recom mend increase furosemide to tid over weekend, with f/u CMP and urine micro on Monday (lab closed already today). She will monitor morning wts. Assuming BP back to usual range and no significan t abnormalit y on labs, return to usual regimen thereafter and f/u with endocrinol ogy as scheduled later this month. Syndrome o f inappropriate vasopressin secretion 50210832 E22.[address] Pelaez, limit free water, furosemide 20mg bid and sodium check q2mo prn. Adrenal co rtical hypofunction 265091540 E27.40 Would expect, if anything, that decreasing HC dose would lower BP, but this is the only recent obvious change. CPM for now, pending labs and endocrinol ogy f/u as above. [id number] ANJALI Sanchez MD FP, [facility], OFF[address] [facility] [place] [address] 10/12/2022 07:58:00 10/12/2022 08:25:04 Essential hypertension 53749569 I10 -Blood pressure is NOT at goal of <130/80-Ho me cuff compared to manual 10/12/22: Home cuff compared today: SBP elevated by 20 mmHg and DBP elevated by 23-Home blood pressure range has been:SBP 155DBP 86-Current Medication Regimen:fu rosemide 20mg TID (for three days duration reports swelling in the legs and tightness overall)Lo sartan 25 mg qd (takes in am)Metopro lol ER 1 and 1/2 tablets dailyPatie nt reports good compliance with meds-Encou rage lifestyle changes: Does not smoke. Encouraged exercise: 5days/week 30 min/day, limiting alcohol one drink/day or less, and decrease sodium intake (limit 2300 mg/day)-CM P 10/03/22 low Na at 134, Bun 19, creatinine 0.6 Plan:Layo daly losartan to 50 mg daily today. F/u BP clinic in 2 weeks. Discussed indication s for new prescripti on, risks and benefits of medication , common side effects and how to manage, and reasons to notify prescriber of adverse effects or discontinu ation. - BP clinic appointmen t in 2 weeksIf BP at goal <130/80, at home and cuff accurate, no change.If BP not at goal <130/80 at home and in office, please advise patient to schedule f/u OV for HTN management Please remind patient to have BMP drawn day of BP clinic appointmen t. Syndrome o f inappropriate vasopressin secretion 13222547 E22.[address] Pelaez, limit free water, furosemide 20mg bid and sodium check q2mo prn. Adrenal co rtical hypofunction 321332421 E27.40 Would expect, if anything, that decreasing HC dose would lower BP, but this is the only recent obvious change. CPM for now, pending labs and endocrinol ogy f/u as above. [id number] Yolis Pelaez MD Endocrino logy, [facility] [address] [place] [address] 10/17/2022 09:46:10 10/18/2022 07:48:57 Adrenal cortical hypofunction 238321709 E27.40 -hydrocort isone 5mg tabs, 2 tabs 10mg in the am, and 1 tab 5mg by mouth tab afternoon , total of 10mg daily; increase to 6 tabs in the am and 3 tabs in the evening if fever or other serious illness for up to 3d -skip 2 doses of hydrocorti sone before measuring cortisol and acth, skip pm dose, do not take am dose until after blood draw 7 to 8am, then take hydrocorti sone per routine -increase hydrocorti sone when sick/stres sed -injection solucortef 100mg IM or subcut if severe injury, loss of consciousn ess, or inability to tolerate oral medicine due to severe nausea/vom iting Central hypothyroidism 00138955 E03.8 -synthroid brand name only 75mcg mcg daily once daily 6d a week and none once weekly Hyperlipidemia 40493428 E78.5 Essential hypertension 04432672 I10 -losartan 25mg tabs, 2 tabs 50mg by mouth daily -metoprolo l er 50mg once daily-furo semide 20mg by mouth twice daily -suggest in 2 to 4 weeks consider increase to furosemide 40mg am and 20mg pm 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 62802455 E27.49 Hypercortisolism 1050419 6 E24.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 50479342 E22.2 -limit free water (oj, milk, water) intake 3 to 4 cups daily-cont inue gatorade, salty foods -furosemid e 20mg by mouth twice daily -sodium check every 2mo as needed Hypertensive disorder 38 462916 I10 [id number] ANJALI Sanchez MD , [facility], [address] [place] [address] 10/27/2022 09:56:44 10/27/2022 10:32:11 Essential hypertension 16096761 I10 Your blood pressure is not at goal.we have made the following changes to your medication s- start amlodipine 2.5mg once dailyPleas e follow up for labs today after visit and in 2 weeksPleas e follow up for BP check in two weeksPleas e call with any concerning side effects or symptoms.D iscuss lifestyle changes: DASH dietLow sodium 2300 mg per dayExercis eWeight lossSmokin g counseling /Loi Guera/de dsNutritio n consult/co unselingRe commended alcohol intake [id number] ANJALI Sanchez MD , [facility], [address] [place] [address] 11/10/2022 13:48:14 11/10/2022 14:15:33 Essential hypertension 89363016 I10 Your blood pressure is not at goalPlease follow up for labs todayPleas e follow up with DD next weekPlease call with any concerning side effects or symptoms.D iscuss lifestyle changes: DASH dietLow sodium 2300 mg per dayExercis eWeight lossNutrit ion consult/co unselingRe commended alcohol intake [id number] ANJALI Sanchez MD , [facility], [address] [place] [address] 11/15/2022 08:06:28 11/15/2022 08:41:25 Essential hypertension 99250725 I10 -Blood pressure is at goal <130/80-Ho me cuff compared to manual 10/12/22: Home cuff compared today: SBP elevated by 20 mmHg and DBP elevated by 23-Home blood pressure range has been:SBP 121DBP 76-Current Medication Regimen:fu rosemide 20mg BIDLosarta n 50 mg qdMetoprol ol ER 50 mg qdAmlodipi ne 2.5 mg qdPatient reports good compliance with meds-Encou rage lifestyle changes: Does not smoke. Encouraged exercise: 5days/week 30 min/day, limiting alcohol one drink/day or less, and decrease sodium intake (limit 2300 mg/day) Plan:Trung nue current regimen. f/u [place] with PCP 12/2022 Dysfunctio n of eustachian tube 05070214 H69.92 Start azelastine spray at bed time as needed. Discussed indication s for new prescripti on, risks and benefits of medication , common side effects and how to manage, and reasons to notify prescriber of adverse effects or discontinu ation. [id number] Lita Mir MD , [facility], [address] [facility] [place] [address] 12/27/2022 13:38:16 12/27/2022 14:33:27 Adult health examination 227519464 Z00.00 see Risk Assessment and Lifestyle Change Counseling section above -colonosco py done 2019 and was told not due for 10 years -prefer yearly mammos Her has continued to have health issues Depression screening 171 855772 Z13.31 depression screening tool administer ed Screening for alcohol abuse 791011235 Z13.39 Alcohol use screening tool administer ed Essential hypertension 97839731 I10 NOT At goal < 140/90; -continue furosemide 20 mg BID at nephrology 's rec and no added salt to her diet. -INCREASE losartan from 50 mg daily to 75 mg daily-DECR EASE amlodipine from 5 mg to 2.5 mg as I think this is causing a lot of her ankle /foot swelling -recheck bmp in 2 weeks and BP check with nurse; if NOT at goal, increase losartan to 100 mg po daily. -cont Metop 50 mg daily; Hypercortisolism 1668491 6 E24.9 Hyperlipidemia 44280995 E78.5 At goal on rosuvastat in. Hypothyroidism 47386282 E03.9 stable on current dose of levothyrox ine. TSH is expected to be low as this is central hypothyroi dism. defer management to endocrinol ogy. Adrenal co rtical hypofunction 564230794 E27.40 on hydrocorti sonefollow s with endocrinol ogy Flushing 015248428 R23.2 facial; likely related to rosacea Rosacea 826307608 L71.9 [id number] Lita Mir MD , [facility], [address] [facility] [place] [address] 01/13/2023 10:27:25 01/13/2023 12:54:09 Essential hypertension 17534598 I10 Verify medication s patient is taking:deacon ing medication s as listed on medication listRemind patient of purpose of medication s.purpose of medication s is to lower elevated blood pressureCo nfirm compliance taking medication s daily as prescribed taking medication s twice daily as prescribed missing doses taki ng medication s daily as prescribed : amlodipine 2.5mg hs, losartan 75mg hs, furosemide 20mg bid, metoprolol 50mg amObstacle s to taking medication s as prescribed finances t beau of doses forg etfulness side effects no neSide effects of medication lightheade dness coug h fatigue erectile dysfunctio n noneWas BP cuff brought to visit no Was patient able to demonstrat e effective use yesPt previously brought monitor to BP clinic. Notes her monitor reading approx 20 points lower Reviewed use of BP cuff yesSent script for BP Cuff noReviewed consequenc es of chronicall y elevated BP, ways to improve BP, salt reduction, DASH diet, alcohol use reduction. Referral not neededTeac h back Patient able to identify three things that elevate BP-smoking , alcohol , salt contents of foodTeach back patient knows BP goalTeach back patient knows the name of BP medication (s)Hand out patient offered handoutPt brought home readings:- 127/75, 113/69, 111/684/25 - 149/87, 138/79, 133/76 Pt states ankle edema as resolved. She is asymptomat ic States she is to be flying to [place] 01/31 and reports significan t anxiety r/t flying. Questions if anti-anxie ty med can be prescribed ? Average of three BPs: 145/70, P 54 (144/70, 143/68, 148/71) Advised BP not at goal and to increase losartan to 100mg daily. Pt agreeable- Scheduled for recheck in 2 weeks [id number] Lita Mir MD , [facility], [address] [place] [address] 01/27/2023 09:59:54 01/27/2023 11:59:28 Essential hypertension 13301870 I10 [id number] Jose Rodriguez Jr. MD , [facility], [address] [place] [address] 02/24/2023 08:27:10 02/24/2023 09:09:04 Diverticulitis 758888133 K57.92 mild, improving. hemodynami dante stable. afebrileno warning/si gns or features. recommend mgmt initially with pain control and a liquid dietupdate screening lab work.ER/91 1 and f/u precaution s provided.a ll questions answered. Suprapubic pain 16572374 6 R10.30 [id number] Yolis Pelaez MD Endocrino logy, [facility] [address] [place] [address] 04/24/2023 10:23:10 04/25/2023 08:20:29 Adrenal cortical hypofunction 810396735 E27.40 -hydrocort isone 5mg tabs, 2 tabs 10mg in the am, and 1 tab 5mg by mouth tab afternoon , total of 10mg daily; increase to 6 tabs in the am and 3 tabs in the evening if fever or other serious illness for up to 3d -skip 2 doses of hydrocorti sone before measuring cortisol and acth, skip pm dose, do not take am dose until after blood draw 7 to 8am, then take hydrocorti sone per routine -increase hydrocorti sone when sick/stres sed -injection solucortef 100mg IM or subcut if severe injury, loss of consciousn ess, or inability to tolerate oral medicine due to severe nausea/vom iting Central hypothyroidism 60312561 E03.8 -synthroid brand name only 75mcg mcg daily once daily 6d a week and none once weekly Syndrome o f inappropriate vasopressin secretion 00851070 E22.2 -limit free water (oj, milk, water) intake 3 to 4 cups daily-cont inue gatorade, salty foods -furosemid e 20mg by mouth twice daily -sodium check every 2mo as needed Hyperlipidemia 12509854 E78.5 Essential hypertension 97421546 I10 -losartan, amlodipine -furosemid e 20mg by mouth twice daily 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 Essential hypertension 36848631 I10 at goal on losartan 100 mg, amlodipine 2.5 mg and furosemide 20 mg BID Hypothyroidism 11567227 E03.9 stable on current dose of levothyrox ine. TSH is expected to be low as this is central hypothyroi dism. defer management to endocrinol ogy. Hypercortisolism 4581764 6 E24.9 Adrenal co rtical hypofunction 038577208 E27.40 on hydrocorti sonefollow s with endocrinol ogy Flushing 584571477 R23.2 facial; likely related to rosacea or could be med side effect; Rosacea 252015144 L71.9 will not prescribe metronidaz ole gel given her allergic reaction to IV version Syndrome o f inappropriate vasopressin secretion 37897413 E22.2 Has been told to limit free water intake. I advised 2 L daily. [id number] Lita Mir MD , [facility], [address] [place] [address] 12/07/2023 11:15:16 12/07/2023 13:42:21 Central hypothyroidism 36560692 E03.8 Stable on synthroid. Followed by endocrinol ogy. Cervical radiculopathy 98856031 M54.12 Paresthesi a of upper limb 33421787 R20.2 intermitte nt for 6 months; more so in last month; wakes up night with pain and numbness in right arm and swelling in hand ; suspect pinched nerve. Improved in last few days-discu ssed supportive care-check labs-if worsening, weakness, discussed other red flags, follow up [id number] Ltia Mir MD , [facility], OFFICE [address] [facility] [address] [place] [address] 01/11/2024 10:11:45 01/11/2024 12:19:45 Adult health examination 431924226 Z00.00 ; involved with her grandchild singh and great grandchild singh; involved with a support group of other widows; Her hcp is her daughter linda (nurse in [place]) and her son Osman, nearby ;-pls bring in a copy of your HCP -colonosco py done 2018 and was told not due for 10 years -prefer yearly mammos Depression screening 171 601249 Z13.31 depression screening tool administer ed Screening for alcohol abuse 645877763 Z13.39 Alcohol use screening tool administer ed Essential hypertension 14143008 I10 At goal < 140/90; -continue furosemide 20 mg BID at nephrology 's rec and no added salt to her diet. 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 Hypothyroidism 35634653 E03.9 stable on current dose of levothyrox ine. TSH is expected to be low as this is central hypothyroi dism. defer management to endocrinol ogy. 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 [id number] Yolis Pelaez MD Endocrino logbuster, [facility] [address] [facility] [place] [address] 02/26/2024 10:26:39 02/26/2024 14:11:20 Adrenal cortical hypofunction 124424738 E27.40 -hydrocort isone 5mg tabs, 2 tabs 10mg in the am, and 1 tab 5mg by mouth tab afternoon , total of 10mg daily; increase to 6 tabs in the am and 3 tabs in the evening if fever or other serious illness for up to 3d -skip 2 doses of hydrocorti sone before measuring cortisol and acth, skip pm dose, do not take am dose until after blood draw 7 to 8am, then take hydrocorti sone per routine -increase hydrocorti sone when sick/stres sed -injection solucortef 100mg IM or subcut if severe injury, loss of consciousn ess, or inability to tolerate oral medicine due to severe nausea/vom iting Central hypothyroidism 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.8 -synthroid brand name only 75mcg mcg daily once daily 6d a week and none once weekly Hyperlipidemia 08127337 E78.5 Syndrome o f inappropriate vasopressin secretion 77686024 E22.2 -limit free water (oj, milk, water) intake 3 to 4 cups daily-cont inue gatorade, salty foods -furosemid e 20mg by mouth twice daily -sodium check every 2mo as needed Essential hypertension 57609431 I10 -losartan, amlodipine -furosemid e 20mg by mouth twice daily 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 -losartan 100 mg daily-amlo dipine 2.5 mg kennedy;y -cont Metop 50 mg daily; Hypercortisolism 8977738 6 E24.9 Hyperlipidemia 56687714 E78.5 At goal on rosuvastat in. Hypothyroidism 09603671 E03.9 stable on current dose of levothyrox ine. TSH is expected to be low as this is central hypothyroi dism. defer management to endocrinol ogy. Adrenal co rtical hypofunction 845688487 E27.40 on hydrocorti sonefollow s with endocrinol ogy Syndrome o f inappropriate vasopressin secretion 77991550 E22.2 Has been told to limit free water intake. Pain in le ft lower limb 352829944 M79.605 Resolved pain in the left leg, initially presenting as sharp pain in the ankle and radiating upwards. Self-resol benita over two weeks. No known injury or precipitat ing event.-No further action required at this time as symptoms have resolved. Pain of ri ght hip joint 0234621997 69395 M25.551 Chronic pain in the right hip, worse with walking and causing a limp. No known injury or precipitat ing event. Pain is affecting daily activities and mobility. Possible hip arthritis. -Order hip x-ray to evaluate for arthritis. -Consider physical therapy, cortisone injections , or surgical interventi on depending on x-ray results. [id number] FELIPA CHARLES, PT Physical Therapy, [address] [address] 09/02/2024 13:22:28 09/03/2024 08:29:34 Pain of right hip joint 3302206391 00119 M25.551 Left side sciatica 45252 05253 86118 M54.32 [id number] FELIPA CHARLES, PT Physical Therapy, [address] [address] 09/16/2024 09:58:13 09/16/2024 14:34:25 Pain of right hip joint 1395085652 91643 M25.551 Left side sciatica 98282 98321 64955 M54.32 [id number] FELIPA CHARLES, PT Physical Therapy, [address] [address] 09/23/2024 11:28:01 09/23/2024 12:23:58 Pain of right hip joint 6596993015 08978 M25.551 Left side sciatica 39081 07908 47914 M54.32 [id number] FELIPA CHARLES, PT Physical Therapy, [address] [address] 09/30/2024 11:31:19 09/30/2024 13:32:34 Pain of right hip joint 2914964318 57135 M25.551 Left side sciatica 64056 93447 07407 M54.32 [id number] FELIPA CHARLES, PT Physical Therapy, [address] [address] 10/14/2024 11:22:50 10/14/2024 13:24:40 Pain of right hip joint 6497171162 81184 M25.551 Left side sciatica 91323 96449 24038 M54.32 [id number] FELIPA CHARLES, PT Physical Therapy, [address] [address] 11/05/2024 10:32:41 11/05/2024 12:25:27 Pain of right hip joint 4971697300 31177 M25.551 Left side sciatica 50185 30180 12954 M54.32 [id number] FELIPA CHARLES, PT Physical Therapy, [address] [address] 11/22/2024 13:57:03 11/22/2024 14:32:46 Pain of right hip joint 7805930046 67201 M25.551 Left side sciatica 60183 04657 06052 M54.32 [id number] Lita Mir MD , [facility], OFFICE [address] [place] [address] 12/24/2024 16:05:40 12/25/2024 07:25:03 Acute cough 8848851489 88674054 R05.1 Likely viral etiology with negative COVID-19 and influenza tests. Expected improvemen t by day ten, cough may persist for four to six weeks.- Encouraged increased fluid intake and rest.- Recommende d tea with honey- Advised steam inhalation .- Instructed to report any symptom exacerbati on or changes. 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 managed by endo-stres s dose steroids. [id number] Lita Mir MD , [facility], OFFICE [address] [place] [address] 01/14/2025 10:11:52 01/14/2025 10:59:15 Adult health examination 493614535 Z00.00 ; involved with her grandchild singh and great grandchild singh; involved with a support group of other widows; Her hcp is her daughter linda (nurse in [place]) and her son Osman, nearby ;-Loi would be the first one to call since he is local -colonosco py done 2019 and was told not due for 10 years -discussed mammograms every other years vs discontinu ing;risks/ benefits; will check next year Depression screening 171 429650 Z13.31 depression screening tool administer ed Screening for alcohol abuse 107028316 Z13.39 Alcohol use screening tool administer ed Candidal intertrigo 2661 88935 B37.2 under breasts; clotrimazo le prn Postmenopausal state 764 30681 Z78.0 Osteoporosis 91294726 M8 1.0 Your recent bone density shows osteopenia with high Frax; had trouble swallowing pills. Taking a medication for osteoporos is can reduce your risk of fracture by 30%; for this reason, taking a medication is recommende d. We have ordered labs to look for any other possible causes of osteoporos is. We will repeat your bone density in 2-3 years to look at your bone health. Please participat e in daily weight bearing exercise. Please work to get at least 1200 mg of calcium daily from your diet. Please make sure you are getting 400-800U of Vitamin D3 daily. Essential hypertension 95046948 I10 At goal < 140/90; -continue furosemide 20 mg BID at nephrology 's rec and no added salt to her diet. -losartan 100 mg daily-amlo dipine 2.5 mg kennedy;y -cont Metop 50 mg daily; Hyperlipidemia 57449943 E78.5 At goal on rosuvastat in. Hypothyroidism 47637794 E03.9 stable on current dose of levothyrox ine. TSH is expected to be low as this is central hypothyroi dism. defer management to endocrinol ogy. Adrenal co rtical hypofunction 810260900 E27.40 on hydrocorti sonefollow s with endocrinol ogy Allergic rhinitis 785373 04 J30.9 see above. Syndrome o f inappropriate vasopressin secretion 35761162 E22.2 Has been told to limit free water intake. Bilateral hearing loss 98413107 H91.93 Hearing loss noted, especially in noisy environmen ts. No prior audiologis t evaluation .- Refer to audiologis t for hearing evaluation . Acute cough 8745569771 75245794 R05.1 Intermitte nt dry cough due to dryness and temperatur e changes. Family history of asthma noted. Discussed inhaler use if persistent .- Consider albuterol inhaler if cough persists.- Use humidifier and steam inhalation .- Use honey and lemon juice for symptomati c relief. Bilateral lower leg edema 655728631 R60.0 discussed compressio n stockings and leg elevation Health Concerns Section Related Observation LastModified by Organization Detai ls LastModified Time None Recorded Concern Status LastModified by Organization Details LastModified Time None Recorded Advance Directives Directive None Recorded Payers Encounter Date Sequence Insurance Name Policy Number Policy Hargrove Covered Member ID Hargrove Member ID Guarantor Name 10/14/2024 2 [place] [id number] Lavonne L O'Jurado [id number] Lavonne L O'Jurado 10/14/2024 1 [place] [employer] [employer] Lavonne L Khadijah [id number] Lavonne L O'Jurado 11/05/2024 2 [place] [id number] Lavonne L O'Jurado [id number] Lavonne L O'Jurado 11/05/2024 1 [place] [employer] [place] Lavonne L Khadijah [id number] Lavonne L O'Jurado 11/22/2024 2 [place] [id number] Lavonne L O'Jurado [id number] Lavonne L O'Jurado 11/22/2024 1 [place] [employer] [employer] Lavonne L Khadijah [id number] C63 Lavonne L O'Jurado 12/24/2024 2 [place] [id number] Lavonne Sanchez'Jurado [id number] Lavonne Sanchez'Jurado 12/24/2024 1 [place] [facility] Lavonne Karimihea [id number] C63 Lavonne Sanchez'Jurado 01/14/2025 2 [place] [id number] Lavonne Sanchez'Jurado [id number] Lavonne Sanchez'Jurado 01/14/2025 1 [place] [facility] Lavonne Lucio [id number] C63 Lavonne Sanchez'Jurado Notes Date Note Type Note Provider Name and Address Organization Details Recorded Time 10/14/19 25 text/htm l No issues with HEP since last visit. Feels ascending stairs is becoming easier. Will wake up on side (either one) and have sciatica pain, which goes away immediately upon lying on back. Usually happens because knee pillow got displaced. intake 09/02/24:Pt is an 79 yo f referred by PCP for R hip pain. Has had chronic R hip pain on and off for some time. More recently, around May 2024 left leg started hurting with a severe shocking pain at ankle, and through mid-June 2024 the pain has migrated up her leg. This resolved and pt instead started limping and hurting around groin/anterolateral hip on the right side. Pain has improved since then, but still limping d/t R LE issues, and started having return of radiating pain in L LE from buttock down to ankle. Worse with walking, going up or down stairs (worse with either leg descending, R LE only when ascending). 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 Xrays 07/13/24: FINDINGS: There is no fracture, subluxation, or dislocation. There ispreservation of the hip joint space. There is mild acetabular spurring.IMPRESSION: No acute bone abnormality. Mild type spurring. Reading Physician: Fox Gracia Occupation: retired teacherRecreation: spending time with grandchildren & great-grandchildren (youngest 2.5 yo), knitting, reading, walking 10-15 minutes on treadmill or outdoor 30-45 minutes in nice weather ARTURO CHARLES, PT [address] [place], [address], [facility] 10/14/2024 12:02:41 11/05/19 25 text/htm l Not getting sciatica at night since following recommendation from last visit to use rolled blanket for knee support. Maybe once or twice in the last two weeks will have a little pinching along posterolateral R thigh, but otherwise no sciatica symptoms in L LE since last visit. Will have R hand tingling from being on her R side that goes away once she lies on back. Slipped on ice in driveway the day of or day after last visit. Landed on buttocks, oriented more toward L side, and haven't had any problems. intake 09/02/24:Pt is an 79 yo f referred by PCP for R hip pain. Has had chronic R hip pain on and off for some time. More recently, around May 2024 left leg started hurting with a severe shocking pain at ankle, and through mid-June 2024 the pain has migrated up her leg. This resolved and pt instead started limping and hurting around groin/anterolateral hip on the right side. Pain has improved since then, but still limping d/t R LE issues, and started having return of radiating pain in L LE from buttock down to ankle. Worse with walking, going up or down stairs (worse with either leg descending, R LE only when ascending). 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 Xrays 07/13/24: FINDINGS: There is no fracture, subluxation, or dislocation. There ispreservation of the hip joint space. There is mild acetabular spurring.IMPRESSION: No acute bone abnormality. Mild type spurring. Reading Physician: Fox Gracia Occupation: retired teacherRecreation: spending time with grandchildren & great-grandchildren (youngest 2.5 yo), knitting, reading, walking 10-15 minutes on treadmill or outdoor 30-45 minutes in nice weather ARTURO CHARLES, PT [address] [place], [address], [facility] 11/05/2024 12:02:49 11/23/19 25 text/htm l Still occasionally having a little pinching along posterolateral R thigh. Slipped on ice in driveway the day of or day after last visit. Landed on buttocks, oriented more toward L side, and haven't had any problems. intake 09/02/24:Pt is an 79 yo f referred by PCP for R hip pain. Has had chronic R hip pain on and off for some time. More recently, around May 2024 left leg started hurting with a severe shocking pain at ankle, and through mid-June 2024 the pain has migrated up her leg. This resolved and pt instead started limping and hurting around groin/anterolateral hip on the right side. Pain has improved since then, but still limping d/t R LE issues, and started having return of radiating pain in L LE from buttock down to ankle. Worse with walking, going up or down stairs (worse with either leg descending, R LE only when ascending). 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 Xrays 07/13/24: FINDINGS: There is no fracture, subluxation, or dislocation. There ispreservation of the hip joint space. There is mild acetabular spurring.IMPRESSION: No acute bone abnormality. Mild type spurring. Reading Physician: Fox Gracia Occupation: retired teacherRecreation: spending time with grandchildren & great-grandchildren (youngest 2.5 yo), knitting, reading, walking 10-15 minutes on treadmill or outdoor 30-45 minutes in nice weather ARTURO CHARLES PT [address] [place], [address], [facility] 11/22/2024 14:30:47 12/25/19 25 text/htm l The patient presents with cough, congestion, and body aches.Symptoms began on Monday morning with cough, congestion, low-grade fever, headaches, and body aches. Mornings are particularly challenging with increased aches and a dry cough. Symptoms improve slightly in the afternoon, with nasal discharge and a productive cough that does not fully relieve congestion. There is no difficulty breathing, but a sore sensation is present at the back of the mouth and throat, likely due to drainage. Occasional 'rattly' sensations in the chest raise concerns about potential bronchial issues.They are taking stress dose steroids as part of their regular medication regimen when sick. [id number]-aqb-[id number] treatments include cough drops, tea with honey, and plans to purchase new cough syrup as the current one is . They have been using steam and increasing fluid intake to manage symptoms. Lita Mir MD [address] [place], [address], [facility] 12/24/2024 17:14:36 01/15/20 25 text/htm l Physical Exam/FemaleReported bypatient.PHAPatient is here for a Wellness Visit. She describes her health status as good. Patient's health is the same as last year.Risk Assessment and Lifestyle Change Counseling (Medicare)Reported bypatient.Coronary Artery Disease Risk Assessment:Family History of Coronary Artery Disease(Father d/t [place]); No personal history of diabetes; No history of peripheral vascular disease, AAA, or carotid disease; No personal history of coronary artery disease Breast Cancer Risk Assessment:No family history of breast cancer; No history of breast cancer or dcis Colon Cancer Risk Assessment:No family history of pre cancerous colon polyps or cancer Lung Cancer Risk Assessment:Never smoked Fracture Risk Assessment:balance is normal;Abnormal bone density osteopenia; Patient has risk for osteoporotic bone fractures; Frax 10 year fracture risk ; now can stand on one foot - doing class at [employer]. Cognitive/Behavioral Risk Assessment:No personal history of mental illness; No family history of mental illness; Do you or anyone else have concerns about your memory? no Safety Risk Assessment:Has grab bars in bathroom; Has rails on steps;History of falls 1-3 in past 12 months; No evidence of abuse/neglect Functional Status:Patient does not have trouble hearing the television or radio when others do not.;Patient has to strain or struggle to hear/understand conversations.(some after virus in Nov, ears feeling plugged); Patient does not need help with preparing meals, transportation, shopping, taking medicine, managing finances, or other activities of daily living.; Patient does not have visual loss that interferes with daily activities;Lives alone; Patient was not unsteady and did not take longer than 30 seconds during the timed get up and go test.; daughter lives hour away - [place]. youngest son near by Diet:Discussed the value of a Mediterranean diet , and eating more fruits and vegetables Exercise counseling:Discussed the importance of daily physical activity; walking; needs to do more. treadmillVMG HyperlipidemiaReported bypatient.Duration:chronic Control:Patient understands medications are to lower cholesterol Compliance:compliant with medications; compliant with follow-up visits; compliant with diet Context:Nonsmoker; No ischemic heart disease; No peripheral vascular disease ([id number]); No diabetes; No carotid artery stenosis Associated Symptoms:normal liver function test; no muscle pain; no fatigue; no chest discomfort; no dyspnea; no change in exercise capacityVMG HypertensionReported bypatient.Context:No ischemic heart disease; No kidney disease; No history of CVA; No congestive heart failure; No history of transient ischemic attacks; No peripheral vascular disease; No history of diabetes Control:Patient understands medications are to lower blood pressure Compliance:Compliant with medications; Compliant with diet; Compliant with exercise; Compliant with follow-up visits Barriers to CareNo identified barriers to care Self Care:Using home BP monitor weekly home BPs range 130-140/85/90 Associated Symptoms:No chest pain; No shortness of breath; No fatigue; No palpitations; No decline in exercise capacity; No snoring;Edema; L> R chronic issue with warm weather.VMG HypothyroidReported bypatient.Control:TSH <.5 Compliance:compliant with medications; compliant with follow-up visits The patient is an 79-year-old with osteopenia and pituitary issues who presents with a persistent cough and bone density concerns.They experience a persistent cough that has improved but still occurs in dry hacking spells, often triggered by dryness from air conditioning or temperature changes. They have not used a humidifier but prefer warmth from a pellet stove. The cough is a mild annoyance and does not significantly impact daily life. There is no personal history of asthma, though there is a family history in their and son.They are interested in a bone density test due to osteopenia and long-term hydrocortisone use for pituitary and Webb's issues. They have difficulty swallowing medications like Fosamax and had their last bone density scan in 2017.They have concerns about hearing, particularly with background noise affecting conversations, and plan to see an promotions intern. They experience leg swelling with discomfort from fluid retention, using compression socks but are concerned about wearing them in summer. They have sciatic nerve issues and thigh weakness, attributed to long-term cortisol use, but have not had recent falls except one incident in winter without injury.Their diet includes fruits, vegetables, and grains, and they engage in regular walking and exercise classes. They have no significant memory concerns but occasionally have difficulty recalling words or names. They participate in a balance class at the [employer], improving their ability to stand on one foot. Lita Mir MD [address] [place] [address], [place], [id number], [facility] 01/14/2025 13:31:07 OBGyn Episode No OBEpisode recorded.
== END 2025-02-11 09:44 | disposition home or self-care (01) ==
LOC: HO.MAMMO 09:43
PROVIDERS: PCP Internal Medicine; Visit Provider Internal Medicine
DX: Z78.0 Asymptomatic menopausal state (principal)
CPT/HCPCS: 77080

== ENCOUNTER → 2025-02-11 10:00 | Outpatient (BNV) | payer MEDICARE, SELFPAY | PROVIDERS: PCP Internal Medicine; Visit Provider Radiology Diagnostic Radiology | DX: E28.39 Other primary ovarian failure (principal) | CPT/HCPCS: 77080 ==